=== PATIENT | female | born 1995 | race Caucasian/White ===

== ENCOUNTER 2025-03-25 16:05 | Inpatient (IN) | payer MEDICARE, MEDICAID, SELFPAY ==
[2025-03-25 16:06] VITALS: BP 105/73; PULSE 123; RESP 16; TEMP 36.8; O2SAT 96; BMI 32.3
--- NOTE | 2025-03-25 16:06 | ECG_ITS ---
[employer] Test Date: 2025-03-25 Pat Name: Ann So Department: Room: Gender: Female Cyber Forensic Specialist: : 1995 Requested By: Melida Mckeon Order Number: [id number] Florecita MD: Marquise Conway M.D. Measurements Intervals [place] Rate: 117 P: 31 NE: 128 QRS: 69 QRSD: 101 T: 1 QT: 321 QTc: 448 Interpretive Statements SINUS TACHYCARDIA NONSPECIFIC T-WAVE ABNORMALITY ABNORMAL RHYTHM ECG Compared to ECG 01/29/2016 03:30:56 Sinus rhythm no longer present Sinus arrhythmia no longer present T-wave abnormality still present Electronically Signed On 03-28-2025 14:15:00 CDT by Marquise Conway M.D. [email or web address]
--- NOTE | 2025-03-25 16:06 | ED.C_ITS ---
HPI - Psych 2 General: Chief Complaint: Psychiatric Symptoms Stated Complaint: SI/HI Time Seen by Provider: 03/25/25 16:06 History of Present Illness: This is a 29-year-old female with a history of psychiatric issues who presents the emergency room by ambulance with complaint of suicidal and homicidal ideations. She is never been here before. She says she just got out of snf recently and then she went to [facility] and was admitted to the hospital there but she says when she was discharged she did not go on medications that are helping her and now she feels suicidal and homicidal. She has superficial abrasions to both arms that were self-inflicted. Related Data Allergies Allergy/AdvReac Type Severity Reaction Status Date / Time No Known Allergies Allergy Verified 03/25/25 16:10 Review of Systems 2 Narrative: Constitutional symptoms: Negative except as documented in HPI. Skin symptoms: Negative except as documented in HPI. Eye symptoms: Negative except as documented in HPI. ENMT symptoms: Negative except as documented in HPI. Respiratory symptoms: Negative except as documented in HPI. Cardiovascular symptoms: Negative except as documented in HPI. Gastrointestinal symptoms: Negative except as documented in HPI. Genitourinary symptoms: Negative except as documented in HPI. Musculoskeletal symptoms: Negative except as documented in HPI. Neurologic symptoms: Negative except as documented in HPI. Psychiatric symptoms: Negative except as documented in HPI. Endocrine symptoms: Negative except as documented in HPI. Physical Exam 2 Narrative: EXAM NARRATIVE: General: Alert. no acute distress Skin: Warm, dry Head: Normocephalic, atraumatic. Neck: Supple, trachea midline. Eye: Extraocular movements are intact. Ears, nose, mouth and throat: Oral mucosa moist. Cardiovascular: Regular rate and rhythm, Normal peripheral perfusion. Respiratory: Lungs are clear to auscultation, respirations are non-labored, breath sounds are equal, Symmetrical chest wall expansion. Gastrointestinal: Soft, Nontender, Non distended Musculoskeletal: Normal ROM, no deformity. Neurological: Alert and oriented. No focal neurological deficit observed. Psychiatric: Cooperative, depressed, expresses suicidal ideation. Course 2 Vital Signs: Vital signs: Vital Signs Temperature 98.3 F 03/25/25 16:13 Pulse Rate 123 H 03/25/25 16:13 Respiratory Rate 16 03/25/25 16:13 Blood Pressure 105/73 03/25/25 16:13 Pulse Oximetry 96 03/25/25 16:13 Oxygen Delivery Me thod Room Air 03/25/25 16:13 MDM - Psych Medical Decision Making Differential diagnosis: Patient with reported depression and suicidal ideation. concerns for infection, alcohol intoxication, cardiac issues or other medical problems prior to psychiatric admission. Workup: labwork, ekg ordered to evaluate the pathologies and to clear the patient medically prior to psychiatric admission Lab Review: Laboratory results were reviewed and interpreted by myself the emergency room physician. - Medically cleared. - Blood alcohol level is negative, -Tylenol and salicylate levels are negative. - Drug screen is benzodiazepine - No signs of infection, urinalysis clear and white count is not elevated - No anemia. - BUN and creatinine are within normal limits. Consultation: I spoke with Dr. Hill who is on-call for psychiatry who agrees to admission. Assessment and plan: Suicidal ideation Self-mutilating behavior -Admission to neuropsychiatric unit for continued evaluation and treatment. - All lab work was reviewed and interpreted personally by myself, the ER physician - Evaluation and treatment of this problem were appropriate in the emergency setting Lab Data 03/25/25 17:17 03/25/25 17:17 Laboratory Results WBC 7.15 10^3/uL (3.29-11.43) 03/25/25 17:17 RBC 4.49 10^6/uL (3.85-5.65) 03/25/25 17:17 Hgb 12.60 g/dL (11.27-16.99) 03/25/25 17:17 Hct 38.7 % (36-47) 03/25/25 17:17 MCV 86.2 fl (85-98) 03/25/25 17:17 MCH 28.1 pg (27-33) 03/25/25 17:17 MCHC 32.6 g/dL (30-55) 03/25/25 17:17 RDW 14.6 % (12.1-15.1) 03/25/25 17:17 Plt Count 231 10^3/cmm (157-399) 03/25/25 17:17 MPV 10.0 fL (7.4-10.4) 03/25/25 17:17 Neut % (Auto) 61.8 % 03/25/25 17:17 Lymph % (Auto) 29.2 % 03/25/25 17:17 [place] % (Auto) 7.4 % 03/25/25 17:17 Eos % (Auto) 0.8 % 03/25/25 17:17 Baso % (Auto) 0.4 % 03/25/25 17:17 Neut # (Auto) 4.41 10^3/uL (1.8-7.7) 03/25/25 17:17 Lymph # (Auto) 2.1 10^3/uL (0.8-4.8) 03/25/25 17:17 [place] # (Auto) 0.5 10^3/uL (0.2-0.9) 03/25/25 17:17 Eos # (Auto) 0.1 10^3/uL (0.0-0.8) 03/25/25 17:17 Baso # (Auto) 0.0 10^3/uL (0.0-0.1) 03/25/25 17:17 Nucleated RBC % (auto) 0 % 03/25/25 17:17 Nucleated RBCs # 0.0 /100WBC 03/25/25 17:17 Sodium 140 mmol/L (136-145) 03/25/25 17:17 Potassium 3.6 mmol/L (3.5-5.1) 03/25/25 17:17 Chloride 107 mmol/L (98-107) 03/25/25 17:17 Anion Gap 18.6 (5-19) 03/25/25 17:17 BUN 18 mg/dL (6-20) 03/25/25 17:17 Creatinine 0.8 mg/dL (0.5-0.9) 03/25/25 17:17 Glucose 93 mg/dL (65-115) 03/25/25 17:17 Calculated Osmolality 292 mOsm/kg (285-295) 03/25/25 17:17 Calcium 8.7 mg/dL (8.5-10.5) 03/25/25 17:17 Total Bilirubin 0.2 mg/dL (0.15-1.2) 03/25/25 17:17 AST 10 U/L (0-32) 03/25/25 17:17 ALT 11 U/L (0-33) 03/25/25 17:17 Alkaline Phosphatase 85 U/L (35-105) 03/25/25 17:17 Total Protein 6.6 g/dL (6.6-8.7) 03/25/25 17:17 Albumin 4.1 g/dL (3.5-5.2) 03/25/25 17:17 Globulin 2.5 g/dL (1.3-4.6) 03/25/25 17:17 TSH 0.46 uIU/mL (0.27-4.20) 03/25/25 17:17 HCG, Qual Negative (Negative) 03/25/25 16:25 Urine Color Yellow (Yellow) 03/25/25 16:25 Urine Appearance Clear (CLEAR) 03/25/25 16: Urine pH 5.5 (5-7) 03/25/25 16: Ur Specific [place] 1.022 (1.005-1.030) 03/25/25 16: Urine Protein Negative (Negative) 03/25/25 16:25 Urine Glucose (UA) Negative (Normal) 03/25/25 16: Urine Ketones Trace (Negative) 03/25/25 16: Urine Blood Negative (Negative) 03/25/25 16:25 Urine Nitrate Negative (Negative) 03/25/25 16:25 Urine Bilirubin Negative (Negative) 03/25/25 16: Urine Urobilinogen 1.0 mg/dL (Negative) 03/25/25 16:25 Ur Leukocyte Esterase Negative (Negative) 03/25/25 16:25 Urine RBC 0-2 /hpf (0-2) 03/25/25 16:25 Urine WBC 6-10 /hpf (0-5) 03/25/25 16:25 Ur Squamous Epith Cells 11-20 /hpf (0-5) H 03/25/25 16:25 Amorphous Sediment Not Reportable 03/25/25 16:25 Urine Bacteria 2+ /hpf (NONE) H 03/25/25 16:25 Hyaline Casts 1.21 /lpf 03/25/25 16:25 Urine Opiates Screen Negative ng/mL (Negative) 03/25/25 16:25 Ur Barbiturates Screen Negative ng/mL (Negative) 03/25/25 16:25 Ur Phencyclidine Scrn Negative ng/mL (Negative) 03/25/25 16:25 Ur Amphetamines Screen Negative ng/mL (Negative) 03/25/25 16:25 U Benzodiazepines Scrn Positive ng/mL (Negative) H 03/25/25 16:25 Urine Cocaine Screen Negative ng/mL (Negative) 03/25/25 16:25 U Marijuana (THC) Screen Negative ng/mL (Negative) 03/25/25 16:25 No radiology studies performed this visit Discharge Plan Discharge Patient Disposition: Admitted As Inpatient Clinical Impression: Depression, Suicidal ideation, Self mutilating behavior Condition: Stable Coding Level of Care Code ED Angio Technologist for Carmita Corbett
[2025-03-25 16:13] VITALS: BP 105/73; PULSE 123; RESP 16; TEMP 36.8; O2SAT 96
[2025-03-25 16:34] LABS: Glucose Urine UA Negative (Normal); Nitrate Urine Negative (Negative); Specific Gravity, Urine 1.022 (1.005-1.030)
[2025-03-25 16:36] LABS: Add Urine Microscopic? YES; HCG Qualitative Urine. Negative (Negative)
[2025-03-25 16:41] LABS: PCP Screen Urine Negative (Negative)
[2025-03-25 17:36] LABS: Hematocrit 38.7 % (36-47); Hemoglobin 12.60 g/dL (11.27-16.99); Mean Corpuscular HGB Conc 32.6 g/dL (30-55); Mean Corpuscular Hemoglobin 28.1 pg (27-33); Mean Corpuscular Volume 86.2 fl (85-98); Nucleated Red Blood Cells % 0 %; Platelet Count 231 10^3/cmm (157-399); Red Blood Count 4.49 10^6/uL (3.85-5.65); White Blood Count 7.15 10^3/uL (3.29-11.43)
[2025-03-25 18:10] LABS: Alanine Aminotransferase 11 U/L (0-33); Albumin Level 4.1 g/dL (3.5-5.2); Alkaline Phosphatase 85 U/L (35-105); Anion Gap 18.6 (5-19); Aspartate Amino Transferase 10 U/L (0-32); Blood Urea Nitrogen 18 mg/dL (6-20); Calcium 8.7 mg/dL (8.5-10.5); Carbon Dioxide 18 mmol/L (22-29); Chloride 107 mmol/L (98-107); Creatinine Clr Calc Pharmacy 116.6594; Globulin 2.5 g/dL (1.3-4.6); Glucose 93 mg/dL (65-115); Osmolality Calculated 292 mOsm/kg (285-295); Potassium 3.6 mmol/L (3.5-5.1); Sodium 140 mmol/L (136-145); Thyroid Stimulating Hormone 0.46 uIU/mL (0.27-4.20); Total Protein 6.6 g/dL (6.6-8.7)
[2025-03-25 18:11] LABS: Acetaminophen < 5.0 ug/mL (10-30); Alcohol Level < 10 mg/dL (0-10); Salicylate < 0.3 mg/dL (3-10)
--- NOTE | 2025-03-25 18:22 | PC.NURSE ---
Involuntary 96 hour hold rights read and reviewed with patient. Osmany from security present during reading of rights. Patient verbalized understandings and copy of rights given to patient. Patient is requesting something for anxiety.
[2025-03-25] MEDS: LORazepam 1 MG/0.5 ML injection 2 MG IM (20:01)
[2025-03-25 20:03] VITALS: BP 120/80; PULSE 115; RESP 18; O2SAT 98
--- NOTE | 2025-03-26 01:27 | PC.NURSE ---
Pt attempted to eat her wristband because she is not getting her way. Pt demanding medications for pain and is acting out.
[2025-03-26 08:54] VITALS: BP 130/78; PULSE 82; O2SAT 98
[2025-03-26 09:14] VITALS: BP 130/70; PULSE 82; RESP 18; TEMP 36.8; O2SAT 98
--- NOTE | 2025-03-26 12:17 | PC.NURSE ---
Pt assessment went well with no behavioral issues.
--- NOTE | 2025-03-26 12:59 | PC.NURSE ---
Pt has pica and wanted to eat the batteries out of the remote. Needs to be watched especially with small objects. She also said she tried to kill herself by swallowing a spoon.
[2025-03-26 14:00] VITALS: BP 118/74; PULSE 109; RESP 17; TEMP 36.7; O2SAT 97
--- NOTE | 2025-03-26 14:57 | PC.NURSE ---
Pt has been found putting her identity bracelet and chip bag in her mouth. She has spit it all out and denied having swallowing any. I first gave her Zyprexa to help with her anxiety after she did her ID band and after eating her chip bag, Dr. Hill has approved for her to have an oral B52, See MAR.
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
[2025-03-26] MEDS: LORazepam 1 MG/0.5 ML injection 2 MG IM (18:31)
[2025-03-26] MEDS: haloperidol inj 5 mg/mL INJ 1 mL IM (18:31)
[2025-03-26] MEDS: diphenhydrAMINE 50 mg/mL SDV 1mL IM (18:31)
--- NOTE | 2025-03-26 20:05 | PC.NURSE ---
Pt was found in her room on her bed wrapped in a blanket. She had ate a portion of her styerfoam cup. We let pt know that she was going to have to go to seclusion because she was cont to harm herself by eating non food items. She refused. We called security to assist us. Her blanket was removed from her and she was manually made to get off her bed and move to seclusion. Pt began to fight staff. A code 10 was called. At 1735 pt was placed in seclusion. Within seconds she began to scratch and wounds she had already created with self harm. At 1737 we moved her to restraints. She began to increasingly fight staff. Dr. Hill approved a B52 injection. At 1742 she received an injection see nov. She calmed down with time. At 1815 her Rt leg was released. 1826 Rt arm, 183 lt leg. 1840 fully removed from seclusion. We had conversations about not cont the behaviors. She agreed and made her way to the nurses station where she received a snack and beverage a long with her remaining scheduled meds.
--- NOTE | 2025-03-26 22:18 | PC.NURSE ---
pt refused vs, charge nurse notified, resp 17
[2025-03-27 06:00] VITALS: BP 117/81; PULSE 100; RESP 21; TEMP 36.8; O2SAT 95
--- NOTE | 2025-03-27 10:44 | PC.NURSE ---
Shift Assessment Pt states that she slept good last night. She denied anxiety and rates her depression a 7/10. She endorses both SI & HI, but states she has no plan. When asked about hallucinations she states that she has both auditory and visual. I asked her to elaborate on that and she states that the auditory hallucinations are voices telling her to hurt herself or others. She states that the visual hallucinations are a lady in a white dress, demons, of just black spots, she states that it's always various things. When I asked her if she was having any pain she states that her bladder is hurting and that she is supposed to be on meds to help her urinate. She also states that she has not had a bm in over a week, since she was in retirement. I informed her that I would speak with doc and see if we could get her something to help. She is claiming that she is not fully lactose intolerant. It's only milk and foods like cheese and yogurt don't bother her. She is wanting this to be edited so she can have at least yogurt.
--- NOTE | 2025-03-27 11:15 | PC.NURSE ---
v/o from Dr. Hill to order MOM for pt for constipation. See MAR.
[2025-03-27 14:00] VITALS: BP 130/84; PULSE 113; RESP 18; TEMP 36.6; O2SAT 98
--- NOTE | 2025-03-27 14:11 | W.PM.NPUPNS ---
Subjective NPU Subjective: Patient presented today reporting that things have been tough recently. She just got out of residential a few days ago and they took her to [place] for presumptive admission not giving her any of the medications she took in residential. Given that she was on a 96-hour hold she was not admitted at that facility in [place] and they were looking for discharge options and so she had some experience in this area and so they [facility] the [facility]. However she reported that when she got to [facility] still without medications from the hospitalization she ended up struggling. She reports that she is in a tough situation because she has been in residential or psychiatric facilities more or less without stability for much of the past couple of years. She endorsed looking for possibly a fdc or some kind of more controlled environment. She reports having been on Haldol, Cogentin, BuSpar and Ativan but having no real evidence to this. We discussed getting some of that information from the [facility]. Mental Status Exam MSE Comments: This is an obese white female in hospital scrubs with limited grooming but adequate eye contact. No abnormal movements except for psychomotor retardation. Cooperative with exam in mild to moderate distress. Speech was slightly decreased rate and volume and childlike with speech impediment. Mood described as depressed, affect congruent and subdued. Thought process linear. Thought content: Patient endorsed suicidal ideation leading to hospitalization, but denied homicidal ideation, there were no delusions reported or noted, she she denied current auditory or visual hallucinations. Attention and concentration appeared intact and memory was somewhat reliable but none were formally tested. She is alert and oriented x 3. Insight and judgment appeared impaired and impulse control is impaired. Intellectual ability was impaired. Vitals/I&O/Wt Last Vital Signs Temp 98.3 F 03/27/25 06:00 Pulse 100 03/27/25 06:00 Resp 21 H 03/27/25 06:00 BP 117/81 03/27/25 06:00 Pulse Ox 95 03/27/25 06:00 O2 Del Method Room Air 03/27/25 06:00 Weight last 48 hrs Weight 90.718 kg Data NPU 03/25/25 17:17 03/25/25 17:17 A&P Assessment and plan 1. Self mutilating behavior: 2. Suicidal ideation: 3. Borderline personality disorder: 4. Pica: 5. PTSD (post-traumatic stress disorder): 6. Depression: 7. Borderline intellectual functioning: Plan: This is a 18-year-old white female with a long history of mental health issues including diagnoses of PTSD, borderline personality disorder and bipolar disorder with reports of frequent hospitalizations recently but none here since 2016. She presents with likely intellectual disability, poor impulse control, reports that she has uncontrollable pica and self-injurious behavior. 1. Will attempt to get some previous records from recent hospitalizations to understand where we got to these multiple medications and make changes as indicated. 2. Encourage individual, group and milieu therapy. 3. Continue every 15 minute checks for safety. 4. Obtain collateral information. 5. Monitor against the backdrop of the 96-hour hold. PDMP PDMP Reviewed: Not Reviewed Involuntary Hold Information Hold Status: Legal Status: 96 Hour Hold Date/Time Hold Expires: 03/31/25 Attestations NPU Medical Necessity Statement*: Inpatient hospitalization is medically necessary and the clinically appropriate intervention at this time. We will monitor/initiate medications and make changes as indicated. Likely length of stay 4 to 6 days. Coding Level of Care Code Acute Code for g Fwd Diagnoses Self mutilating behavior Z72.89 Suicidal ideation R45.851 Borderline personality disorder F60.3 Pica F50.89 PTSD (post-traumatic stress disorder) F43.10 Depression F32.A Borderline intellectual functioning R41.83
[2025-03-27 20:23] VITALS: BP 124/80; PULSE 100; RESP 18; TEMP 36.4; O2SAT 96
[2025-03-28 06:00] VITALS: BP 121/76; PULSE 99; RESP 16; TEMP 36.9; O2SAT 99
--- NOTE | 2025-03-28 07:18 | P.NPUPN_ITS ---
Subjective NPU 2 Subjective: Patient presented today reporting that things are going okay. She was very psychosomatic today as usual with increased areas of concern. We discussed the risks, benefits and alternatives of initiating a beta-marya either metoprolol or propranolol to assist with her anxiety and elevated heart rate. We continued to discuss her desire for residential treatment. She denied any side effects to her medications. Mental Status Exam 2 MSE Comments: This is an obese white female in hospital scrubs with limited grooming but adequate eye contact. No abnormal movements except for psychomotor retardation. Cooperative with exam in mild to moderate distress. Speech was slightly decreased rate and volume and childlike with speech impediment. Mood described as depressed, affect congruent and subdued. Thought process linear. Thought content: Patient endorsed suicidal ideation leading to hospitalization, but denied homicidal ideation, there were no delusions reported or noted, she she denied current auditory or visual hallucinations. Attention and concentration appeared intact and memory was somewhat reliable but none were formally tested. She is alert and oriented x 3. Insight and judgment appeared impaired and impulse control is impaired. Intellectual ability was impaired. Vitals/I&O/Wt Last Vital Signs Temp 98.4 F 03/28/25 06:00 Pulse 99 03/28/25 06:00 Resp 16 03/28/25 06:00 BP 121/76 03/28/25 06:00 Pulse Ox 99 03/28/25 06:00 O2 Del Method Room Air 03/28/25 06:00 Weight last 48 hrs Weight 94.529 kg Weight 94.529 kg Data NPU 03/25/25 17:17 03/25/25 17:17 A&P Assessment and plan 1. Self mutilating behavior: 2. Suicidal ideation: 3. Borderline personality disorder: 4. Pica: 5. PTSD (post-traumatic stress disorder): 6. Depression: 7. Borderline intellectual functioning: Plan: This is a 18-year-old white female with a long history of mental health issues including diagnoses of PTSD, borderline personality disorder and bipolar disorder with reports of frequent hospitalizations recently but none here since 2016. She presents with likely intellectual disability, poor impulse control, reports that she has uncontrollable pica and self-injurious behavior. 1. Will attempt to get some previous records from recent hospitalizations to understand where we got to these multiple medications and make changes as indicated. Restarted BuSpar and increased to 20 mg p.o. 3 times daily 2. Encourage individual, group and milieu therapy. 3. Continue every 15 minute checks for safety. 4. Obtain collateral information. 5. Monitor against the backdrop of the 96-hour hold. PDMP PDMP Reviewed: Not Reviewed Involuntary Hold Information 2 Hold Status: Legal Status: 96 Hour Hold Date/Time Hold Expires: 03/31/25 Attestations NPU 2 Medical Necessity Statement*: Inpatient hospitalization is medically necessary and the clinically appropriate intervention at this time. We will monitor/initiate medications and make changes as indicated. Likely length of stay 4 to 6 days. Coding Level of Care Code Acute Code for Chg Fwd Diagnoses Self mutilating behavior Z72.89 Suicidal ideation R45.851 Borderline personality disorder F60.3 Pica F50.89 PTSD (post-traumatic stress disorder) F43.10 Depression F32.A Borderline intellectual functioning R41.83
--- NOTE | 2025-03-28 12:10 | PC.NURSE ---
Dr. Hill gave verbal order to increase Buspirone to 20mg PO TID
--- NOTE | 2025-03-28 12:37 | PC.NURSE ---
Signee called and left 3 messages on different voice mails requested medical records for pt. Signee left phone number to the NPU as a call back number.
--- NOTE | 2025-03-28 12:49 | PC.NURSE ---
message with fax number left at [facility] with [facility] fax number and NPU phone number.
[2025-03-28 14:00] VITALS: BP 101/73; PULSE 98; RESP 20; TEMP 36.8; O2SAT 98
--- NOTE | 2025-03-28 14:44 | PC.NURSE ---
A fax for release of information was faxed to [facility] at
[2025-03-28 19:37] VITALS: BP 123/78; PULSE 93; RESP 16; TEMP 36.7; O2SAT 98
[2025-03-28] MEDS: neomycin-poly-bacitracin oint 28 gm 1 APPLIC TOPICAL (19:57)
[2025-03-29 05:47] VITALS: BP 125/81; PULSE 91; RESP 18; TEMP 36.6; O2SAT 98
[2025-03-29 06:00] VITALS: BP 110/71; PULSE 100; RESP 18; TEMP 36.7; O2SAT 98
[2025-03-29 09:44] LABS: Estmated Average Glucose 97; Hemoglobin A1C 5.0 % (4.0-6.0)
[2025-03-29 14:00] VITALS: BP 107/69; PULSE 97; RESP 18; TEMP 36.7; O2SAT 94
--- NOTE | 2025-03-29 18:27 | PC.NURSE ---
Dr. Hill gave verbal order to start Protonix 40mg PO QD.
[2025-03-29 19:46] VITALS: BP 125/79; PULSE 97; RESP 19; TEMP 37; O2SAT 98
[2025-03-29] MEDS: neomycin-poly-bacitracin oint 28 gm 1 APPLIC TOPICAL (20:28)
[2025-03-30 06:00] VITALS: BP 117/71; PULSE 103; RESP 18; TEMP 36.9; O2SAT 97
--- NOTE | 2025-03-30 07:55 | PC.NURSE ---
[facility] and gave fax number for release of information to be faxed. Signee faxed the release of information requested to the [facility] this am.
--- NOTE | 2025-03-30 08:29 | P.NPUPN_ITS ---
Subjective NPU 2 Subjective: Patient presented today reporting that she is doing okay except for she spent much of her time during the day with various somatic complaints per staff reports of direct observation. She continued to ask about starting medication for every single system that she has a father about. We discussed that we checked. Hemoglobin A1c it was 5.0. She tried to get up to start medication for diabetes prior to us checking her A1c. We discussed that she needs to take things 1 thing at a time and she continues to seem anxious and want to check off everything on her worry list. She denies any side effects of the medication. Mental Status Exam 2 MSE Comments: This is an obese white female in hospital scrubs with limited grooming but adequate eye contact. No abnormal movements except for psychomotor retardation. Cooperative with exam in mild to moderate distress. Speech was slightly decreased rate and volume and childlike with speech impediment. Mood described as depressed, affect congruent and subdued. Thought process linear. Thought content: Patient endorsed suicidal ideation leading to hospitalization, but denied homicidal ideation, there were no delusions reported or noted, she she denied current auditory or visual hallucinations. Attention and concentration appeared intact and memory was somewhat reliable but none were formally tested. She is alert and oriented x 3. Insight and judgment appeared impaired and impulse control is impaired. Intellectual ability was impaired. Vitals/I&O/Wt Last Vital Signs Temp 98.5 F 03/30/25 06:00 Pulse 103 H 03/30/25 06:00 Resp 18 03/30/25 06:00 BP 117/71 03/30/25 06:00 Pulse Ox 97 03/30/25 06:00 O2 Del Method Room Air 03/30/25 06:00 Weight last 48 hrs Weight 94.529 kg Weight 94.529 kg Data NPU 03/25/25 17:17 03/25/25 17:17 A&P Assessment and plan 1. Self mutilating behavior: 2. Suicidal ideation: 3. Borderline personality disorder: 4. Pica: 5. PTSD (post-traumatic stress disorder): 6. Depression: 7. Borderline intellectual functioning: Plan: This is a 18-year-old white female with a long history of mental health issues including diagnoses of PTSD, borderline personality disorder and bipolar disorder with reports of frequent hospitalizations recently but none here since 2016. She presents with likely intellectual disability, poor impulse control, reports that she has uncontrollable pica and self-injurious behavior. 1. Will attempt to get some previous records from recent hospitalizations to understand where we got to these multiple medications and make changes as indicated. Restarted BuSpar and increased to 20 mg p.o. 3 times daily. Started propranolol 20 mg p.o. 3 times daily as needed and trying to get records from [facility]. 2. Encourage individual, group and milieu therapy. 3. Continue every 15 minute checks for safety. 4. Obtain collateral information. 5. Monitor against the backdrop of the 96-hour hold. PDMP PDMP Reviewed: Not Reviewed Involuntary Hold Information 2 Hold Status: Legal Status: 96 Hour Hold Date/Time Hold Expires: 03/31/25 Attestations NPU 2 Medical Necessity Statement*: Inpatient hospitalization is medically necessary and the clinically appropriate intervention at this time. We will monitor/initiate medications and make changes as indicated. Likely length of stay 4 to 6 days. Coding Level of Care Code Acute Code for Chg Fwd Diagnoses Self mutilating behavior Z72.89 Suicidal ideation R45.851 Borderline personality disorder F60.3 Pica F50.89 PTSD (post-traumatic stress disorder) F43.10 Depression F32.A Borderline intellectual functioning R41.83
--- NOTE | 2025-03-30 12:52 | P.NPUPN_ITS ---
Subjective NPU 2 Subjective: Patient presented today reporting that she was doing fine. She said that her anxiety however was overwhelming. She spent the day like the past days being very somatically preoccupied essentially naming every system in her body and what she needed done with it from her skin, to her bladder, to her heart excetra. We continue to tell her that we need to take it a day at a time and not just have new medications and interventions every day. She says she understood but she ended up having a meltdown and needed restraint. She asked for whether we would restart Ativan for her and when that was not done she attempted to get forced medication that had Ativan with it. Discussed with staff not utilizing that as a vehicle she could try to get the Ativan without having it prescribed. She had denied any side effects to her medication. Mental Status Exam 2 MSE Comments: This is an obese white female in hospital scrubs with limited grooming but adequate eye contact. No abnormal movements except for psychomotor retardation. Cooperative with exam in mild to moderate distress. Speech was slightly decreased rate and volume and childlike with speech impediment. Mood described as depressed, affect congruent and subdued. Thought process linear. Thought content: Patient endorsed suicidal ideation leading to hospitalization, but denied homicidal ideation, there were no delusions reported or noted, she she denied current auditory or visual hallucinations. Attention and concentration appeared intact and memory was somewhat reliable but none were formally tested. She is alert and oriented x 3. Insight and judgment appeared impaired and impulse control is impaired. Intellectual ability was impaired. Vitals/I&O/Wt Last Vital Signs Temp 98.5 F 03/30/25 06:00 Pulse 103 H 03/30/25 06:00 Resp 18 03/30/25 06:00 BP 117/71 03/30/25 06:00 Pulse Ox 97 03/30/25 06:00 O2 Del Method Room Air 03/30/25 06:00 Weight last 48 hrs Weight 94.529 kg Weight 94.529 kg Data NPU 03/25/25 17:17 03/25/25 17:17 A&P Assessment and plan 1. Self mutilating behavior: 2. Suicidal ideation: 3. Borderline personality disorder: 4. Pica: 5. PTSD (post-traumatic stress disorder): 6. Depression: 7. Borderline intellectual functioning: Plan: This is a 18-year-old white female with a long history of mental health issues including diagnoses of PTSD, borderline personality disorder and bipolar disorder with reports of frequent hospitalizations recently but none here since 2016. She presents with likely intellectual disability, poor impulse control, reports that she has uncontrollable pica and self-injurious behavior. 1. Will attempt to get some previous records from recent hospitalizations to understand where we got to these multiple medications and make changes as indicated. Restarted BuSpar and increased to 20 mg p.o. 3 times daily. Started propranolol 20 mg p.o. 3 times daily as needed and trying to get records from [facility]. 2. Encourage individual, group and milieu therapy. 3. Continue every 15 minute checks for safety. 4. Obtain collateral information. 5. Monitor against the backdrop of the 96-hour hold. PDMP PDMP Reviewed: Not Reviewed Involuntary Hold Information 2 Hold Status: Legal Status: 96 Hour Hold Date/Time Hold Expires: 03/31/25 Attestations NPU 2 Medical Necessity Statement*: Inpatient hospitalization is medically necessary and the clinically appropriate intervention at this time. We will monitor/initiate medications and make changes as indicated. Likely length of stay 4 to 6 days. Coding Level of Care Code Acute Code for Chg Fwd Diagnoses Self mutilating behavior Z72.89 Suicidal ideation R45.851 Borderline personality disorder F60.3 Pica F50.89 PTSD (post-traumatic stress disorder) F43.10 Depression F32.A Borderline intellectual functioning R41.83
[2025-03-30] MEDS: LORazepam 1 MG/0.5 ML injection 2 MG IM (13:15)
[2025-03-30] MEDS: haloperidol inj 5 mg/mL INJ 1 mL IM ×2 (13:15→19:21)
[2025-03-30] MEDS: diphenhydrAMINE 50 mg/mL SDV 1mL IM ×2 (13:15→19:20)
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
[2025-03-30 14:00] VITALS: BP 120/81; PULSE 105; RESP 18; TEMP 37.1; O2SAT 95
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
[2025-03-30 20:37] VITALS: BP 109/79; PULSE 106; RESP 19; TEMP 36.4; O2SAT 93
--- NOTE | 2025-03-30 20:37 | PC.NURSE ---
DR JASON NOTIFIED THAT PT HAD BLADDER SCAN ORDERED THAT WAS NOT DONE. REQUEST GRANTED TO PUT A PRN ORDER FOR BLADDER SCAN & STRAIGHT CATH NEEDED.
[2025-03-30] MEDS: paliperidone ER 6 mg Tablet PO (21:06)
[2025-03-31] VITALS (11 sets, daily range): BP systolic 106–126; BP diastolic 55–76; PULSE 84–108; RESP 16–18; TEMP 36.6–37.2; O2SAT 95–97
[2025-03-31] MEDS: paliperidone ER 6 mg Tablet PO (08:21)
--- NOTE | 2025-03-31 12:13 | PC.NURSE ---
MD kahn'd this.
[2025-03-31] MEDS: neomycin-poly-bacitracin oint 28 gm 1 APPLIC TOPICAL (15:17)
--- NOTE | 2025-03-31 17:41 | W.PM.NPUPNS ---
Subjective NPU Subjective: Patient presented today continuing to have moments of emotional dysregulation per staff reports and direct observation. She continued to have questions and desires to get something started in relation to any kind of thoughts she had. She reports that her scalp is itchy so she wants medical shampoo, she reports her feet are tingly and so she wants medication for her neuropathy which she reports she had been on Neurontin in the past. And this list went on and on. We discussed the risks, benefits and alternatives of restarting some Neurontin and she understood and agreed to proceed as is documented in this note. We discussed that by doing that we might be able to help the anxiety which seems to be the driving force for her challenges. She denied any side effects to her medications. Mental Status Exam MSE Comments: This is an obese white female in hospital scrubs with limited grooming but adequate eye contact. No abnormal movements except for psychomotor retardation. Cooperative with exam in mild to moderate distress. Speech was slightly decreased rate and volume and childlike with speech impediment. Mood described as depressed, affect congruent and subdued. Thought process linear. Thought content: Patient endorsed suicidal ideation leading to hospitalization, but denied homicidal ideation, there were no delusions reported or noted, she she denied current auditory or visual hallucinations. Attention and concentration appeared intact and memory was somewhat reliable but none were formally tested. She is alert and oriented x 3. Insight and judgment appeared impaired and impulse control is impaired. Intellectual ability was impaired. Vitals/I&O/Wt Last Vital Signs Temp 99 F 03/31/25 14:00 Pulse 108 H 03/31/25 14:00 Resp 17 03/31/25 16:12 BP 115/74 03/31/25 14:00 Pulse Ox 97 03/31/25 14:00 O2 Del Method Room Air 03/31/25 06:00 Data NPU 03/25/25 17:17 03/25/25 17:17 A&P Assessment and plan 1. Self mutilating behavior: 2. Suicidal ideation: 3. Borderline personality disorder: 4. Pica: 5. PTSD (post-traumatic stress disorder): 6. Depression: 7. Borderline intellectual functioning: Plan: This is a 18-year-old white female with a long history of mental health issues including diagnoses of PTSD, borderline personality disorder and bipolar disorder with reports of frequent hospitalizations recently but none here since 2015. She presents with likely intellectual disability, poor impulse control, reports that she has uncontrollable pica and self-injurious behavior. 1. Will attempt to get some previous records from recent hospitalizations to understand where we got to these multiple medications and make changes as indicated. Restarted BuSpar and increased to 20 mg p.o. 3 times daily. Started propranolol 20 mg p.o. 3 times daily as needed and trying to get records from [facility]. Added Neurontin 100 mg p.o. 3 times daily. 2. Encourage individual, group and milieu therapy. 3. Continue every 15 minute checks for safety. 4. Obtain collateral information. 5. Monitor against the backdrop of the 96-hour hold. PDMP PDMP Reviewed: Not Reviewed Involuntary Hold Information Hold Status: Legal Status: 96 Hour Hold Date/Time Hold Expires: 03/31/25 Attestations NPU Medical Necessity Statement*: Inpatient hospitalization is medically necessary and the clinically appropriate intervention at this time. We will monitor/initiate medications and make changes as indicated. Likely length of stay 4 to 6 days. Coding Level of Care Code Acute Code for Chg Fwd Diagnoses Self mutilating behavior Z72.89 Suicidal ideation R45.851 Borderline personality disorder F60.3 Pica F50.89 PTSD (post-traumatic stress disorder) F43.10 Depression F32.A Borderline intellectual functioning R41.83
[2025-03-31] MEDS: haloperidol inj 5 mg/mL INJ 1 mL IM (20:42)
[2025-03-31] MEDS: diphenhydrAMINE 50 mg/mL SDV 1mL IM (20:42)
--- NOTE | 2025-03-31 23:10 | PC.NURSE ---
At approximately 21:15 a code 10 was called R/T patient attempting to self harm by scratching at her fore arms and attempting to bang her head on the wall. She also became aggressive with staff; kicking, screaming profanities, striking at and attempts to spit on staff. This was shortly after she was given Zyprexa 5mg PO, Trazodone 100mg PO, Inderal 10 mg PO and vistaril 50mg PO. Dr[address] Hill was notified and ordered 100mg Seroquil PO. Patient continued to escalate. Order for 50mg benadryl IM and 5mg Haldol IM along with order for patient to be placed in the restraint bed if we were unable to deescalate her behavior. At 21:18 patient was taken to the restraint room in the restraint bed with the help of NPU staff, Security, warehouse distribution specialist, ER staff and additional responding staff. Q 15 minute circulation and extremity capillary checks were performed as well as Q 15 minute vital signs. Patient agreed to stop her self harming, aggressive, abusive behaviors. The patient was released from restraints at 23:05; a total of 1 hour and 53 minutes. She returned to her room / bed 1:1 sitter at bedside without further incident.
--- NOTE | 2025-04-01 05:46 | PC.NURSE ---
vitals not collected, resp. 16, nurse notified
[2025-04-01] MEDS: paliperidone ER 6 mg Tablet PO (08:00)
--- NOTE | 2025-04-01 13:35 | PC.NURSE ---
PRN MED PT GIVEN 5MG ZYDIS FOE ANXIETY, WILL CONTINUE TO MONITOR.
[2025-04-01 14:00] VITALS: BP 129/82; PULSE 88; RESP 18; TEMP 36.7; O2SAT 94
--- NOTE | 2025-04-01 14:51 | P.NPUPN_ITS ---
Subjective NPU 2 Subjective: Patient presented today reporting that she was doing okay and wanting to get off one-to-one. Will continue to discussed with the damage she is doing to her chances for placement when she is unable to manage herself responsibly. He continued to introduce of her [place] complaints and hopes and wishes. We discussed continuing to take things slow and not just jump to every when that comes to her mind. She denied any side effects to her medication. Mental Status Exam 2 MSE Comments: This is an obese white female in hospital scrubs with limited grooming but adequate eye contact. No abnormal movements except for psychomotor retardation. Cooperative with exam in mild to moderate distress. Speech was slightly decreased rate and volume and childlike with speech impediment. Mood described as depressed, affect congruent and subdued. Thought process linear. Thought content: Patient endorsed suicidal ideation leading to hospitalization, but denied homicidal ideation, there were no delusions reported or noted, she she denied current auditory or visual hallucinations. Attention and concentration appeared intact and memory was somewhat reliable but none were formally tested. She is alert and oriented x 3. Insight and judgment appeared impaired and impulse control is impaired. Intellectual ability was impaired. Vitals/I&O/Wt Last Vital Signs Temp 98.1 F 03/31/25 20:20 Pulse 87 03/31/25 23:05 Resp 18 03/31/25 20:20 BP 106/71 03/31/25 23:05 Pulse Ox 95 03/31/25 20:20 O2 Del Method Room Air 03/31/25 20:20 Data NPU 03/25/25 17:17 03/25/25 17:17 A&P Assessment and plan 1. Self mutilating behavior: 2. Suicidal ideation: 3. Borderline personality disorder: 4. Pica: 5. PTSD (post-traumatic stress disorder): 6. Depression: 7. Borderline intellectual functioning: Plan: This is a 18-year-old white female with a long history of mental health issues including diagnoses of PTSD, borderline personality disorder and bipolar disorder with reports of frequent hospitalizations recently but none here since 2016. She presents with likely intellectual disability, poor impulse control, reports that she has uncontrollable pica and self-injurious behavior. 1. Will attempt to get some previous records from recent hospitalizations to understand where we got to these multiple medications and make changes as indicated. Restarted BuSpar and increased to 20 mg p.o. 3 times daily. Started propranolol 20 mg p.o. 3 times daily as needed and trying to get records from intermediate. Added Neurontin 100 mg p.o. 3 times daily. 2. Encourage individual, group and milieu therapy. 3. Continue every 15 minute checks for safety. Patient has been on one-to-one during the day after significant difficulties overnight last night. But was taken off. 4. Obtain collateral information. 5. Monitor against the backdrop of the 96-hour hold. PDMP PDMP Reviewed: Not Reviewed Involuntary Hold Information 2 Hold Status: Legal Status: 96 Hour Hold Date/Time Hold Expires: 03/31/25 Attestations NPU 2 Medical Necessity Statement*: Inpatient hospitalization is medically necessary and the clinically appropriate intervention at this time. We will monitor/initiate medications and make changes as indicated. Likely length of stay 4 to 6 days. Coding Level of Care Code Acute Code for Chg Fwd Diagnoses Self mutilating behavior Z72.89 Suicidal ideation R45.851 Borderline personality disorder F60.3 Pica F50.89 PTSD (post-traumatic stress disorder) F43.10 Depression F32.A Borderline intellectual functioning R41.83
[2025-04-01 20:53] VITALS: BP 148/96; PULSE 99; RESP 18; TEMP 36.6; O2SAT 96
[2025-04-01] MEDS: ketoconazole Shampoo 120 mL Btl 1 APPLIC TOPICAL (21:48)
[2025-04-02 06:00] VITALS: BP 105/76; PULSE 87; RESP 18; TEMP 36.6; O2SAT 94
[2025-04-02] MEDS: paliperidone ER 6 mg Tablet PO (08:35)
[2025-04-02] MEDS: diphenhydrAMINE 50 mg/mL SDV 1mL IM ×2 (11:40→14:03)
[2025-04-02] MEDS: LORazepam 1 MG/0.5 ML injection 2 MG IM (11:42)
[2025-04-02] MEDS: haloperidol inj 5 mg/mL INJ 1 mL IM (11:42)
--- NOTE | 2025-04-02 13:07 | PC.NURSE ---
Jacy MARISA went into pt room to do rounding and found pt sitting on her bed myles cross hiding something up her shirt. The aid called for this nurse and I entered the room and instructed the pt to let me see what she was hiding. She initially shook her head no, but then soon after pulled out 2 pieces of tile she had removed off the bathroom floor. I instructed the pt to hand them to me and she again told me no. I informed her that she would need to hand them over or we would be calling security down to help up remove them. She handed the pieces over, but Dr Hill agreed that pt needed to go to seclusion for a while, because she had already received a B52 for a behavior just earlier and she can't be trusted to be alone. Pt refused to go to seclusion and then informed myself and ADAL Lynn that if we put her in seclusion she was going to harm herself. The decision was then made with Dr. Hill to put her in restraints. Pt refused to go onto the restraint bed willing so a code 10 was called. Pt was put into a manual hold and then transferred to the restraint bed. She was then wheeled to the restraint/seclusion room. She yelled and screamed through this transition. She was safely placed in the room with a 1:1 sitter.
[2025-04-02 14:00] VITALS: BP 112/67; PULSE 105; RESP 16; TEMP 36.8; O2SAT 98
[2025-04-02] MEDS: water for injection-sterile 10 ML (14:51)
--- NOTE | 2025-04-02 16:27 | PC.NURSE ---
@1138 pt complaining to staff that for lunch she did not recieve a cheeseburger and ff. this staff member informed pt that she was on a mechanical soft diet and that a cheeseburger was not considered mechanical soft. at that time pt started threatening to hurt herself stood up from bench near nurses station walked into her room slamming door, laying on her bed started to hit head against wall. stated she would hurt herself. at that time Anthony Joshi and Anthony Lynn came to assist with desculating pt. pt continued to attempt to hit head against wall. code 10 called janice Colby, nurses alex guthrie, security officers x2 along with house mover supervisor arrived to assit with code ten. patient escorted to isolation room placed in restraints. vital signs taken.
--- NOTE | 2025-04-02 18:33 | PC.NURSE ---
Pt was found in her room by aid scrapping her arms with appeared to be tile. Pt was immediately placed in a manual hold. Pt states that she tore it off the floor down in the dayroom. Pt was walked to the restraint bed and placed in four point restraints. She cooperated with minimal assistance. Dr. Hill was immediately notified and stated that pt was to stay in restraints at this time and to give her Zyprexa IM. [place] [facility] was notified that Dr. Hill ordered a 1:1 sitter for pt and one was provided. Wrists and ankles were checked for good circulation.
--- NOTE | 2025-04-02 19:51 | P.NPUPN_ITS ---
Subjective NPU 2 Subjective: Patient presented today reporting that things were okay. She continued to struggle with moments of losing her control and behaving in someway that has led to restraint and seclusion. She has received significant as needed medication and some episodes had to do with her frustration about what she was going to eat. We discussed the risks, benefits and alternatives of making some changes including Invega and Neurontin and she understood and agreed to proceed as is documented in this note. She denied any side effects of her medication. Mental Status Exam 2 MSE Comments: This is an obese white female in hospital scrubs with limited grooming but adequate eye contact. No abnormal movements except for psychomotor retardation. Cooperative with exam in mild to moderate distress. Speech was slightly decreased rate and volume and childlike with speech impediment. Mood described as depressed, affect congruent and subdued. Thought process linear. Thought content: Patient endorsed suicidal ideation leading to hospitalization, but denied homicidal ideation, there were no delusions reported or noted, she she denied current auditory or visual hallucinations. Attention and concentration appeared intact and memory was somewhat reliable but none were formally tested. She is alert and oriented x 3. Insight and judgment appeared impaired and impulse control is impaired. Intellectual ability was impaired. Vitals/I&O/Wt Last Vital Signs Temp 98.2 F 04/02/25 14:00 Pulse 105 H 04/02/25 14:00 Resp 16 04/02/25 14:00 BP 112/67 04/02/25 14:00 Pulse Ox 98 04/02/25 14:00 O2 Del Method Room Air 04/02/25 14:00 Data NPU 03/25/25 17:17 03/25/25 17:17 A&P Assessment and plan 1. Self mutilating behavior: 2. Suicidal ideation: 3. Borderline personality disorder: 4. Pica: 5. PTSD (post-traumatic stress disorder): 6. Depression: 7. Borderline intellectual functioning: Plan: This is a 18-year-old white female with a long history of mental health issues including diagnoses of PTSD, borderline personality disorder and bipolar disorder with reports of frequent hospitalizations recently but none here since 2016. She presents with likely intellectual disability, poor impulse control, reports that she has uncontrollable pica and self-injurious behavior. 1. Will attempt to get some previous records from recent hospitalizations to understand where we got to these multiple medications and make changes as indicated. Restarted BuSpar and increased to 20 mg p.o. 3 times daily. Started propranolol 20 mg p.o. 3 times daily as needed and trying to get records from detention. Added Neurontin 100 mg p.o. 3 times daily. Increased Neurontin to 300 mg p.o. 4 times daily. Added Invega 6 mg p.o. daily. 2. Encourage individual, group and milieu therapy. 3. Continue every 15 minute checks for safety. Patient has been on one-to-one during the day after significant difficulties overnight last night. But was taken off. Multiple seclusions today. 4. Obtain collateral information. 5. Monitor against the backdrop of the 96-hour hold. PDMP PDMP Reviewed: Not Reviewed Involuntary Hold Information 2 Hold Status: Legal Status: 96 Hour Hold Date/Time Hold Expires: 03/31/25 Attestations NPU 2 Medical Necessity Statement*: Inpatient hospitalization is medically necessary and the clinically appropriate intervention at this time. We will monitor/initiate medications and make changes as indicated. Likely length of stay 4 to 6 days. Coding Level of Care Code Acute Code for Chg Fwd Diagnoses Self mutilating behavior Z72.89 Suicidal ideation R45.851 Borderline personality disorder F60.3 Pica F50.89 PTSD (post-traumatic stress disorder) F43.10 Depression F32.A Borderline intellectual functioning R41.83
[2025-04-02 20:01] VITALS: BP 123/67; PULSE 96; RESP 18; O2SAT 98
--- NOTE | 2025-04-02 20:08 | XRR_ITS ---
PROCEDURE INFORMATION: Exam: XR Abdomen Exam date and time: 04/02/2025 8:59 PM Age: 29 years old Clinical indication: Constipation TECHNIQUE: Imaging protocol: Radiologic exam of the abdomen. Views: Frontal supine view of the abdomen. 1 View. COMPARISON: No relevant prior studies available. FINDINGS: Gastrointestinal tract: Normal. No bowel dilation. Large colonic stool burden. Cholecystectomy clips project over right upper quadrant. Bones/joints: Unremarkable. XR/XR KUB portable [id number] IMPRESSION: No acute findings. Large colonic stool burden, which may be seen with constipation in the appropriate clinical setting.
[2025-04-02] MEDS: ketoconazole Shampoo 120 mL Btl 1 APPLIC TOPICAL (21:00)
[2025-04-03] MEDS: neomycin-poly-bacitracin oint 28 gm 1 APPLIC TOPICAL (05:53)
[2025-04-03 06:00] VITALS: BP 102/70; PULSE 78; RESP 18; TEMP 36.5; O2SAT 97
[2025-04-03] MEDS: paliperidone ER 6 mg Tablet PO (07:11)
[2025-04-03] MEDS: diphenhydrAMINE 50 mg/mL SDV 1mL IM ×3 (08:29→13:38)
[2025-04-03] MEDS: LORazepam 1 MG/0.5 ML injection 2 MG IM (08:30)
[2025-04-03] MEDS: haloperidol inj 5 mg/mL INJ 1 mL IM (08:30)
--- NOTE | 2025-04-03 08:30 | PC.NURSE ---
Pt. started to self harm by scratching her harm one on one alerted signee to this. Pt. stated she was going to kill herself. Blankets was removed from pt.'s room. pt. started yelling rape over and over and then said do you want to suck my pussy repeatedly. pt. got into the shower to avoid security being able to touch her. Pt. finally got out of the shower and walked to her room and sat down to receive B-52 inj. Pt. is pacing back and forth with one on one at this time still agitated, but not currently self harming.
[2025-04-03 10:29] VITALS: BP 111/78; PULSE 105; RESP 18; TEMP 37.1; O2SAT 95
[2025-04-03] MEDS: water for injection-sterile 10 ML (11:23)
--- NOTE | 2025-04-03 11:54 | PC.NURSE ---
restraint removal pt left wrist restraint remove at 1150 am. pulse WNL. cap refill WNL. pt does have an abrasion on the left wrist from when she previously self- harmed. it is not bleeding at this time.
[2025-04-03 12:03] VITALS: BP 110/76; PULSE 91; RESP 18; TEMP 36.6; O2SAT 98
--- NOTE | 2025-04-03 13:03 | PC.NURSE ---
Pt. stated she was still hungry. Signee called dietary for another cheeseburger, but pt. was getting into the trash eating things and ripped up some of the trim off the poon and pt. is now placed in restraints again.
[2025-04-03] MEDS: haloperidol inj 5 mg/mL INJ 1 mL 10 MG IM (13:38)
[2025-04-03 14:00] VITALS: BP 120/69; PULSE 89; RESP 17; TEMP 36.3; O2SAT 99
--- NOTE | 2025-04-03 15:00 | PC.NURSE ---
Pt. refused scheduled Busporine. Dr. Hill said to DC the order.
--- NOTE | 2025-04-03 15:11 | PC.NURSE ---
left arm released at 1433, right arm released at 1452, left leg released at 1455, right leg released at `1500
--- NOTE | 2025-04-03 16:41 | W.PM.NPUPNS ---
Subjective NPU Subjective: Patient presented today reporting that things were bad. She continued to struggle with moments of losing her control and behaving in a way that has led to restraint and seclusion. She has received significant as needed medication and some episodes had to do with her frustration about what she was going to eat. She continued to have many somatic complaints. She denied any side effects of her medication. Mental Status Exam MSE Comments: This is an obese white female in hospital scrubs with limited grooming but adequate eye contact. No abnormal movements except for psychomotor retardation. Cooperative with exam in mild to moderate distress. Speech was slightly decreased rate and volume and childlike with speech impediment. Mood described as depressed, affect congruent and subdued. Thought process linear. Thought content: Patient endorsed suicidal ideation leading to hospitalization, but denied homicidal ideation, there were no delusions reported or noted, she she denied current auditory or visual hallucinations. Attention and concentration appeared intact and memory was somewhat reliable but none were formally tested. She is alert and oriented x 3. Insight and judgment appeared impaired and impulse control is impaired. Intellectual ability was impaired. Vitals/I&O/Wt Last Vital Signs Temp 97.4 F L 04/03/25 14:00 Pulse 89 04/03/25 14:00 Resp 17 04/03/25 14:00 BP 120/69 04/03/25 14:00 Pulse Ox 99 04/03/25 14:00 O2 Del Method Room Air 04/03/25 14:00 Data NPU 03/25/25 17:17 03/25/25 17:17 A&P Assessment and plan 1. Self mutilating behavior: 2. Suicidal ideation: 3. Borderline personality disorder: 4. Pica: 5. PTSD (post-traumatic stress disorder): 6. Depression: 7. Borderline intellectual functioning: Plan: This is a 29-year-old white female with a long history of mental health issues including diagnoses of PTSD, borderline personality disorder and bipolar disorder with reports of frequent hospitalizations recently but none here since 2016. She presents with likely intellectual disability, poor impulse control, reports that she has uncontrollable and self-injurious behavior. 1. Will attempt to get some previous records from recent hospitalizations to understand where we got to these multiple medications and make changes as indicated. Restarted BuSpar and increased to 20 mg p.o. 3 times daily. Started propranolol 20 mg p.o. 3 times daily as needed and trying to get records from shelter. Added Neurontin 100 mg p.o. 3 times daily. Increased Neurontin to 300 mg p.o. 4 times daily. Added Invega 6 mg p.o. daily. 2. Encourage individual, group and milieu therapy. 3. Continue every 15 minute checks for safety. Patient has been on one-to-one during the day after significant difficulties overnight last night. But was taken off. Multiple seclusions today. 4. Obtain collateral information. 5. Monitor against the backdrop of the 96-hour hold. PDMP PDMP Reviewed: Not Reviewed Involuntary Hold Information Hold Status: Legal Status: 96 Hour Hold Date/Time Hold Expires: 04/23/2025 Attestations NPU Medical Necessity Statement*: Inpatient hospitalization is medically necessary and the clinically appropriate intervention at this time. We will monitor/initiate medications and make changes as indicated. Likely length of stay 7-10 days. Coding Level of Care Code Acute Code for [facility] Fwd Diagnoses Self mutilating behavior Z72.89 Suicidal ideation R45.851 Borderline personality disorder F60.3 Pica F50.89 PTSD (post-traumatic stress disorder) F43.10 Depression F32.A Borderline intellectual functioning R41.83
--- NOTE | 2025-04-03 21:00 | PC.NURSE ---
vs not completed per charge nurse resp 16
--- NOTE | 2025-04-04 04:26 | PC.NURSE ---
Patient woke up requesting the night medications she had refused previously. Given prn Haldol, gabapentin and cogentin.
[2025-04-04 06:00] VITALS: BP 121/72; PULSE 91; RESP 19; TEMP 36.6; O2SAT 98
[2025-04-04] MEDS: ketoconazole Shampoo 120 mL Btl 1 APPLIC TOPICAL (08:39)
[2025-04-04] MEDS: paliperidone ER 6 mg Tablet PO (08:40)
[2025-04-04 14:00] VITALS: BP 106/72; PULSE 105; RESP 18; TEMP 36.8; O2SAT 97
--- NOTE | 2025-04-04 14:36 | XRR_ITS ---
PROCEDURE INFORMATION: Exam: XR Abdomen Exam date and time: 04/04/2025 3:47 PM Age: 29 years old Clinical indication: Other: Swallowed foreign body; Additional info: Swallowed a battery TECHNIQUE: Imaging protocol: Radiologic exam of the abdomen. Views: Frontal supine view of the abdomen. 1 View. COMPARISON: CR (ABDOMEN, ) 04/02/2025 8:59 PM FINDINGS: Gastrointestinal tract: Nonobstructive bowel gas pattern. Large colonic stool burden. Bones/joints: Unremarkable. Other findings: 5.7 cm radiopaque tubular object projects over left hemiabdomen. XR/XR KUB portable [id number] IMPRESSION: 5.7cm radiopaque tubular object projects over left hemiabdomen.
--- NOTE | 2025-04-04 16:08 | PC.NURSE ---
Pt c/o incontinence of urine when she passes gas. Dr. Hill gave a v/o for a UA with microscopic and a CBC. Orders have been placed.
--- NOTE | 2025-04-04 16:23 | PC.NURSE ---
Pt c/o of abd pain. I spoke with Dr. Hill and he ordered another KUB and to go ahead and prescribe the pt miralax. Orders have been placed.
[2025-04-04 16:30] LABS: Hematocrit 37.4 % (36-47); Hemoglobin 12.00 g/dL (11.27-16.99); Mean Corpuscular HGB Conc 32.1 g/dL (30-55); Mean Corpuscular Hemoglobin 27.2 pg (27-33); Mean Corpuscular Volume 84.8 fl (85-98); Nucleated Red Blood Cells % 0 %; Platelet Count 297 10^3/cmm (157-399); Red Blood Count 4.41 10^6/uL (3.85-5.65); White Blood Count 8.65 10^3/uL (3.29-11.43)
[2025-04-04 17:33] LABS: Glucose Urine UA Negative (Normal); Nitrate Urine Negative (Negative); Specific Gravity, Urine 1.011 (1.005-1.030)
[2025-04-04 19:55] VITALS: BP 107/64; PULSE 107; RESP 18; TEMP 36.8; O2SAT 98
[2025-04-04] MEDS: haloperidol inj 5 mg/mL INJ 1 mL IM (20:52)
[2025-04-04] MEDS: LORazepam 1 MG/0.5 ML injection 2 MG IM (20:52)
[2025-04-04] MEDS: diphenhydrAMINE 50 mg/mL SDV 1mL IM (20:52)
--- NOTE | 2025-04-04 20:53 | PC.NURSE ---
This RN was called to patients room by sindhuter. Found patient sitting in shower attempting to scratch her left arm. Patient verbally de escalated and redirected. Patient was given Haldol 5 mg IM, lorazepam 2 mg IM left deltoid and diphenhydramine 50 mg IM right deltoid. Patient is now resting with sitter at bedside. Patient verbalized that she will let staff know when she feels like she needs to self harm.
--- NOTE | 2025-04-04 21:27 | P.NPUPN_ITS ---
Subjective NPU 2 Subjective: Patient presented today continuing to be really focused on medication changes and somatic complaints. We discussed the fact that we can only manage so much at once and that there is no way to continue to make an adjustment every day to multiple different things just because they come to her mind. We discussed that we would be deliberate and consider each change appropriately and not go on a whim each day. We discussed the risks, benefits and alternatives of increasing her Invega to 9 mg p.o. daily and she understood and agreed to proceed as is documented in this note. She denied any side effects to her medications. Mental Status Exam 2 MSE Comments: This is an obese white female in hospital scrubs with limited grooming but adequate eye contact. No abnormal movements except for psychomotor retardation. Cooperative with exam in mild distress. Speech was slightly decreased rate and volume and childlike with speech impediment. Mood described as anxious, affect congruent but less subdued. Thought process linear. Thought content: Patient endorsed suicidal ideation leading to hospitalization, but denied homicidal ideation, there were no delusions reported or noted, she she denied current auditory or visual hallucinations. Attention and concentration appeared intact and memory was somewhat reliable but none were formally tested. She is alert and oriented x 3. Insight and judgment appeared impaired and impulse control is impaired. Intellectual ability was impaired. Vitals/I&O/Wt Last Vital Signs Temp 98.3 F 04/04/25 19:55 Pulse 107 H 04/04/25 19:55 Resp 18 04/04/25 19:55 BP 107/64 04/04/25 19:55 Pulse Ox 98 04/04/25 19:55 O2 Del Method Room Air 04/04/25 19:55 Weight last 48 hrs Weight 93.984 kg Data NPU 04/04/25 16:18 03/25/25 17:17 A&P Assessment and plan 1. Self mutilating behavior: 2. Suicidal ideation: 3. Borderline personality disorder: 4. Pica: 5. PTSD (post-traumatic stress disorder): 6. Depression: 7. Borderline intellectual functioning: Plan: This is a 29-year-old white female with a long history of mental health issues including diagnoses of PTSD, borderline personality disorder and bipolar disorder with reports of frequent hospitalizations recently but none here since 2016. She presents with likely intellectual disability, poor impulse control, reports that she has uncontrollable and self-injurious behavior. 1. Will attempt to get some previous records from recent hospitalizations to understand where we got to these multiple medications and make changes as indicated. Restarted BuSpar and increased to 20 mg p.o. 3 times daily. Started propranolol 20 mg p.o. 3 times daily as needed and trying to get records from long term. Added Neurontin 100 mg p.o. 3 times daily. Increased Neurontin to 300 mg p.o. 4 times daily. Added Invega 6 mg p.o. daily. Increase Invega to 9 mg p.o. daily. 2. Encourage individual, group and milieu therapy. 3. Continue every 15 minute checks for safety. Patient has been on one-to-one during the day after significant difficulties overnight last night. But was taken off. Multiple seclusions today. 4. Obtain collateral information. 5. Monitor against the backdrop of the 96-hour hold. PDMP PDMP Reviewed: Not Reviewed Involuntary Hold Information 2 Hold Status: Legal Status: 96 Hour Hold Date/Time Hold Expires: 04/23/2025 Attestations NPU 2 Medical Necessity Statement*: Inpatient hospitalization is medically necessary and the clinically appropriate intervention at this time. We will monitor/initiate medications and make changes as indicated. Likely length of stay 7-10 days. Coding Level of Care Code Acute Code for [facility] Fwd Diagnoses Self mutilating behavior Z72.89 Suicidal ideation R45.851 Borderline personality disorder F60.3 Pica F50.89 PTSD (post-traumatic stress disorder) F43.10 Depression F32.A Borderline intellectual functioning R41.83
[2025-04-05 06:00] VITALS: BP 108/64; PULSE 95; RESP 18; O2SAT 97
[2025-04-05] MEDS: neomycin-poly-bacitracin oint 28 gm 1 APPLIC TOPICAL (06:08)
[2025-04-05 07:35] VITALS: BP 117/77; PULSE 95; RESP 18; TEMP 36.6; O2SAT 95
[2025-04-05] MEDS: paliperidone ER 6 mg Tablet PO (08:20)
[2025-04-05] MEDS: polyethylene glycol 3350 Pkt 17 gm PO (08:29)
--- NOTE | 2025-04-05 08:30 | P.NPUPN_ITS ---
Subjective NPU 2 Subjective: Patient presented today continuing to have struggles that she has had during her stay. Per staff reports and direct observation. She has continued to bounce between being on one-to-one and every 15 minute checks. She has continued to have moments where she reports overwhelming anxiety though there is no outward change in her demeanor. She has been in restraints and had as needed medication multiple times in the past 24 hours again. She is now saying that she did so much better when she was in penitentiary when they put her on the Ativan however then she said that the time period of this experiment was 2 weeks or less. We discussed benzodiazepines as a long-term plan as something that tends to be problematic. She also continued to have multiple somatic complaints now having some foot pain and concerns about seizures as resurfaced. We discussed the fact that there is no seizure disorder that is controlled by 50 mg of Topamax. We discussed the fact that Dr. Banegas would be here tomorrow and she denied any side effects of the medication. Mental Status Exam 2 MSE Comments: This is an obese white female in hospital scrubs with limited grooming but adequate eye contact. No abnormal movements except for psychomotor retardation. Cooperative with exam in mild distress. Speech was slightly decreased rate and volume and childlike with speech impediment. Mood described as anxious, affect congruent but less subdued. Thought process linear. Thought content: Patient endorsed suicidal ideation leading to hospitalization, but denied homicidal ideation, there were no delusions reported or noted, she she denied current auditory or visual hallucinations. Attention and concentration appeared intact and memory was somewhat reliable but none were formally tested. She is alert and oriented x 3. Insight and judgment appeared impaired and impulse control is impaired. Intellectual ability was impaired. Vitals/I&O/Wt Last Vital Signs Temp 98.3 F 04/04/25 19:55 Pulse 95 04/05/25 06:00 Resp 18 04/05/25 06:00 BP 108/64 04/05/25 06:00 Pulse Ox 97 04/05/25 06:00 O2 Del Method Room Air 04/05/25 06:00 Weight last 48 hrs Weight 93.984 kg Data NPU 04/04/25 16:18 03/25/25 17:17 A&P Assessment and plan 1. Self mutilating behavior: 2. Suicidal ideation: 3. Borderline personality disorder: 4. Pica: 5. PTSD (post-traumatic stress disorder): 6. Depression: 7. Borderline intellectual functioning: Plan: This is a 29-year-old white female with a long history of mental health issues including diagnoses of PTSD, borderline personality disorder and bipolar disorder with reports of frequent hospitalizations recently but none here since 2016. She presents with likely intellectual disability, poor impulse control, reports that she has uncontrollable and self-injurious behavior. 1. Will attempt to get some previous records from recent hospitalizations to understand where we got to these multiple medications and make changes as indicated. Restarted BuSpar and increased to 20 mg p.o. 3 times daily. Started propranolol 20 mg p.o. 3 times daily as needed and trying to get records from penitentiary. Added Neurontin 100 mg p.o. 3 times daily. Increased Neurontin to 300 mg p.o. 4 times daily. Added Invega 6 mg p.o. daily. Increase Invega to 9 mg p.o. daily. Resume BuSpar at 30 mg p.o. 3 times daily. 2. Encourage individual, group and milieu therapy. 3. Continue every 15 minute checks for safety. Patient has been on one-to-one during the day after significant difficulties overnight last night. But was taken off. Multiple seclusions today. 4. Obtain collateral information. 5. Monitor against the backdrop of the 96-hour hold. PDMP PDMP Reviewed: Not Reviewed Involuntary Hold Information 2 Hold Status: Legal Status: 96 Hour Hold Date/Time Hold Expires: 04/23/2025 Attestations NPU 2 Medical Necessity Statement*: Inpatient hospitalization is medically necessary and the clinically appropriate intervention at this time. We will monitor/initiate medications and make changes as indicated. Likely length of stay 7-10 days. Coding Level of Care Code Acute Code for [facility] Fwd Diagnoses Self mutilating behavior Z72.89 Suicidal ideation R45.851 Borderline personality disorder F60.3 Pica F50.89 PTSD (post-traumatic stress disorder) F43.10 Depression F32.A Borderline intellectual functioning R41.83
[2025-04-05 09:31] VITALS: BP 111/79; PULSE 95; RESP 16; TEMP 36.4; O2SAT 95
[2025-04-05] MEDS: ketoconazole Shampoo 120 mL Btl 1 APPLIC TOPICAL (10:42)
--- NOTE | 2025-04-05 11:40 | PC.NURSE ---
went into room for rounding & patient was sitting in floor in shower scratching at her left forearm. cupola charger notified. this nurse & cupola charger had to manually hold bilateral wrists to prevent patient from self harm attempt by scratching. patient had torn off a piece of large Styrofoam cup & told nursing staff she would hurt herself with it, that shes done it before. security called to unit. security x2 assisted patient back to bed. patient verbally de-escalated by nursing staff. no prn meds given. patient took lunch tray down to day room & is currently eating. staff will cont to monitor closely
--- NOTE | 2025-04-05 12:25 | PC.NURSE ---
PATIENT ATTEMPTS SELF HARM VIA SCRATCHING. WENT INTO BATHROOM SLAMMING DOORS & SCRATCHING AT HER ARMS. SECURITY CALLED TO UNIT, MANUAL HOLD TO ASSIST PATIENT TO BED & PATIENT BECAME VERBALLY & PHYSICALLY AGGRESSIVE WITH STAFF, CALLING STAFF ROXANNE AND VIJI VERBAL ORDER GIVEN FOR HALDOL 10 MG IM WITH BENADRYL 50 MG IM ONCE TO GIVE PRIOR TO PATIENT ACTING OUT, MEDS NOT YET EFFECTIVE. PATIENT CONT TO THRASH IN BED & BEING VERBALLY/PHYSICALLY AGGRESSIVE WITH STAFF. RESTRAINT BED BROUGHT TO BEDSIDE & PATIENT TRANSFERRED TO RESTRAINT BED VIA SECURITY/NURSING STAFF. PATIENT CONT TO BE VERBALLY AGGRESSIVE TOWARDS STAFF, ATTEMPTING TO FREE LIMBS FROM RESTRAINTS. STAFF ATTEMPTS TO GET VITAL SIGNS BUT PATIENT THRASHING AROUND IN RESTRAINT BED STAFF IS UNABLE TO OBTAIN BLOOD PRESSURE OR TEMPT CURRENTLY BUT PATIENT IS NOT APPEARING TO BE IN RESP DISTRESS. ENGINEERING SUPPLIES SALES & LANDSCAPE PHOTOGRAPHER IN ROOM WITH PATIENT ALONG WITH SECURITY GUARDS. PER VERBAL ORDER FROM DR. JASON STAFF MUST WAIT FULL HOUR BETWEEN LAST INJECTIONS TO GIVE MORE PRN MEDS.
[2025-04-05] MEDS: haloperidol inj 5 mg/mL INJ 1 mL 10 MG IM ×2 (13:01→19:00)
[2025-04-05] MEDS: diphenhydrAMINE 50 mg/mL SDV 1mL IM ×3 (13:01→19:00)
[2025-04-05] MEDS: water for injection-sterile 10 ML ×2 (13:20→20:15)
[2025-04-05 14:00] VITALS: BP 106/64; PULSE 108; RESP 18; TEMP 36.4; O2SAT 96
--- NOTE | 2025-04-05 16:07 | PC.NURSE ---
At 1129 staff found pt in the shower of her room with a piece of styrofoam attempting to harm her arms with it. Stephanie ANGELICA and myself held her writsts to prevent further injury until security arrived. Once security arrived they assisted in removing pt from the shower and placing her in a manual hold on her bed. At this time we spoke with the pt and tried to get an idea of what had her so upset. She states that her anxiety is verena high and she wants Dr. Hill to prescribe Ativan and Buspar combination. We talked about how Dr. Hill isn't going to prescribe medications just because she demands to have them. At this time lunch was being served and after talking approx 8 min we were able to release the pt wrist and she agreed to go to the dayroom and eat her lunch without any further incident. At 1203 security was called again, because pt was found in her bathroom once again attempting to harm herself with her nails. Viktoria ANGELICA and myself got her out of the bathroom floor and sat her on the edge of her bed. The decision was made with Dr. Hill to give her 10mg Haldol IM and Benadryl 50mg IM. Pt took the injections willingly. and cont to sit in her room and rest. At 1223 staff and security once again entered the pt room after she shut herself in her bathroom and was attempting to swallow packets of creamer. She was removed from the bathroom and manually restrained on her bed until the restraint bed could be brought in. She was then transferred and restrained in 4 points by 1226, made it to seclusion by 1227. During this time pt was yelling profanities calling staff josie carrasquillo and telling us she would do everything she could to be sure she killed herself on this unit. We attempted to calm pt down and reason with her. She had to be manually held by staff in addition to the restraints to keep her from hurting herself in restraints. We were unable to obtain v/s due to pt not holding still enough. At 1315 pt was given Geodon and Benadryl IM (see MAR) Shortly after this we were able to begin talking with pt and getting her to calm down. At 1340 Rt leg was released. 1344 Lt Arm. 1349 Lt leg. 1353 Rt arm. She went to the bathroom straight away. No further incident. v/s at 1336 were 106 p and 97% o2.
--- NOTE | 2025-04-05 19:06 | PC.NURSE ---
patient found during rounding sitting in her room in bathroom/shower area with door closed. was scratching left forearm with Styrofoam cup she had tore apart. would not stop scratching or give piece of styrofoam to staff when asked. this nurse reached to grab right hand to keep patient from scratching herself further pt became verbally aggressive saying get your hand away from me now. instructional technology facilitator to room, security and code 10 called. patient assisted to restraint bed via several staff members. 4 point restraint & patient is verbally aggressive with staff calling psychiatric security nurse I'm going to kill you nigger! Dr. Hill notified via secure messaging about behavior/restraint. at this time patient cont to be disruptive, trashing about in restraint bed, yelling profanity at staff.
[2025-04-05 19:34] VITALS: BP 161/132
[2025-04-05 21:41] VITALS: BP 92/63; PULSE 110; RESP 18; TEMP 37; O2SAT 94
--- NOTE | 2025-04-06 00:35 | PC.NURSE ---
CODE 10/RESTRAINT At approximately 1845 this RN and day shift RN were doing report when nursing staff informed us that the pt is attempting to scratch herself with a cup and her nails. When nursing staff entered pts room she was sitting on the floor of her shower and scratching her left arm. When nursing staff attempted to talk to the pt she stated repeatedly that she would not stop and that she doesn't give a fuck. HS and security were notified at this time that staff was going to put pt in the restraint bed for her own safety. A Code 10 was called at 185. Pt was placed in restraint bed at 185 in her room and was rolled into the restraint room. Pt then began trying to slip out of restraints several times and started hitting her head on the bed. This caused several staff members to have to hold pt while actively in restraints. Dr. Hill was notified of restraint at 1853. While medications were being pulled pt began yelling and screaming at nursing staff to let go of her. Staff informed pt that if she continued to thrash around in the restraint bed that the bed could tip and asked her if she could stop moving so we could let go of her. Pt responded fuck you. Also during this time nursing staff attempted several times to get pts vitals however pt refused to stay still and would start screaming at the top of her lungs. Once medications were pulled Benadryl 50mg Im was given in pts dorsalgluteal and Haldol 10mg IM was given in Pts right dorsalgluteal at 190. During this time pt continued to try and get out of restraints while screaming homicidal statements towards nursing staff. For the next hour pt continued the same behaviors causing staff to have to hold her in the restraint bed. This nurse contacted Dr. Hill again at 1957 and requested more medications due to pts continued behaviors. Geodon 20mg IM was ordered at this time. At 1999 pt agreed to have vital signs taken- BP 124/74, HR 111, O2 98%. Pt was no longer trying to get out of restraints however pt still continued to try and hit her head against the bed. Geodon 20mg Im was given in pts right deltoid at 2014. Pt tolerated well. This nurse informed pt that if she could remain calm for 15 more minutes that we would start to release her from restraints and pt agreed. At 2029 pts vitals were taken again BP 107/73, HR 88, O2 97%. At 2028 pts right left was released from restraints. At 2038 pts left arm was released. At 2044 pts left leg was released. And lastly at 2049 pt was fully released from restraints. It was noted when pt was released from restraints that while scratching her left arm in her room she had opened up the skin and had been bleeding. This nurse cleaned the wound and left it open to air d/t pt stating that if we put any dressing on it she will try and eat them. Pt then immediately went and laid down in bed. Pt is now observed resting in bed quietly with eyes closed. Sitter at bedside. Behavioral monitoring continues
[2025-04-06 06:00] VITALS: BP 137/86; PULSE 99; RESP 19; TEMP 36.8; O2SAT 96
[2025-04-06] MEDS: diphenhydrAMINE 50 mg/mL SDV 1mL IM (08:02)
[2025-04-06] MEDS: haloperidol inj 5 mg/mL INJ 1 mL IM (08:03)
[2025-04-06] MEDS: haloperidol inj 5 mg/mL INJ 1 mL (08:05)
--- NOTE | 2025-04-06 08:06 | PC.NURSE ---
Pt. refused to come out of the bathroom and was screaming she was going to kill certain people.Patient was restrained by security and this nurse and easily escorted to the seclusion room. Pt then threw a violent fit and was moved to the restraint room and restrained where she received haloperidol 10mg IM and 50mg Benadryl IM.
[2025-04-06] MEDS: paliperidone ER 9 mg Tablet PO (08:39)
--- NOTE | 2025-04-06 08:48 | PC.NURSE ---
Patient refused haloperidol.
--- NOTE | 2025-04-06 08:49 | PC.NURSE ---
Sitter notified staff that she was making threats, that she was going to kill her and then went and shut herself in her bathroom. Staff entered the bathroom and found her sitting on the toilet with a blanket around her shoulders. This nurse asked pt what was going on. She states, I going to fucking kill her This nurse and Leah GALEAS attempted to ask pt why she was feeling this way. Pt states, None of your fucking business We informed her that this was inappropriate ways to speak with people and she stated, I don't fucking care I let the pt know that I was going to have to take the blanket from off her shoulders as this was not a safe way to use her blanket. She told me to not fucking touch her Leah RN and myself had to restrain her writst while Meryl CUNNINGHAM removed the blanket from around her. She pulled a fist back and we instructed her to not hit staff and she refrained. She cont to make threats to harm herself and kill the sitter. She was manually removed from the bathroom when she refused to come out. She was manually held and walked down to the seclusion room. She was cussing the staff the entire time. We placed her into the seclusion room and she immediately began taking her clothes. She removed her depends and put her pants back on. She then sat down on the mat and began to attempt to shred her depends to eat it. Leah and myself entered the room and removed the depends from her hands and gave to Meryl CUNNINGHAM. She then immediately began to claw and scrath her skin. We had to place her in another manual hold and move her to restraints. Pt fought staff and cussed and cont to make threats to kill. After restraints were in place staff had to cont to hold pt as she was thrashing around and trying to bang her head off the bed. She slowly began to calm down and lay still without trying to flip the bed. 0729 was seclusion and 0731 was restraints. Lt leg released 0856, Rt arm 0908, Rt leg 0922, and Lt arm 0932. Releasing v/s 09 113/79, 95%, 95p, and 97.6. She agreed to remain calm the remainder of the day and wanted to use the restroom and eat breakfast. Her tray was saved for her.
[2025-04-06] MEDS: polyethylene glycol 3350 Pkt 17 gm PO (09:38)
[2025-04-06 14:00] VITALS: BP 137/86; PULSE 99; RESP 19; TEMP 36.8; O2SAT 99
--- NOTE | 2025-04-06 15:20 | PC.NURSE ---
OT was going to take pt outside for a few min for group. Pt asked if she could go and we informed her that she did not have that as a privelage today, due to previous behaviors, we would reevaluate that tomorrow. Pt went into her room and began slamming doors and trying to shut herself in her bathroom. She then pulled her pants down and sat on the toilet so she could not be removed from the bathroom. Staff asked pt multiple times to come out and she refused. She finally did pull her pants up and come out of the bathroom. We informed pt that she was going to seclusion she couldn't be going around slamming doors and hurting herself because she was upset. Pt refused so she was put in a manual hold and assisted her to the seclusion room. She quickly sat down on the mattress and got quiet. We talked to her and let her know that this behavior was not going to be tolerated. She agreed. We told her that we were going to wait a few min before we let her out. She sat quietly this entire time and was released at 1510. No additional concerns at this time.
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
[2025-04-06 19:16] VITALS: BP 114/78; PULSE 96; RESP 18; TEMP 36.6; O2SAT 98
[2025-04-06] MEDS: ketoconazole Shampoo 120 mL Btl 1 APPLIC TOPICAL (19:28)
--- NOTE | 2025-04-06 19:28 | P.CONIM_ITS ---
Providers/Reason For Consult 2 Consulting Physician/Specialty*: Dr Sydnie Ba- hospitalist Reason for Consult*: Sharp abdominal pain status post 48 hours of battery swallowing Requesting Physician: Psychiatrist Dr. Looney Attending Physician: Abdon Banegas MD Primary Care Provider: Ozzie Ramirez MD History of Present Illness History of Present Illness Ann So is a 29 year old female who looks older than the stated age with impressive psychiatric illness significant for pica, borderline personality disorder, self mutilating disorder, borderline intellectual functioning, suicidal ideation, PTSD and depression who was admitted to the [facility] as a readmission after having been treated for suicidal ideation stabilized on lithium and trazodone discharge but now readmitted for PTSD from significant trauma in the past where patient now is having a lot of flashbacks and nightmares. Aside from this patient is still grieving for her mother that she lost some months ago, has worsening depression. This patient had been hospitalized in the [facility] and one of them had been [facility] outreach program and this people have provided her with various activity to keep her self busy. She is currently homeless and living in a homeless skilled nursing This psychiatrist who is the attending to this patient in the room Neuro[facility] called consulting the hospitalist to evaluate patient for a sharp abdominal pain following in house swallowing and battery 48 hours ago. Patient has sharp abdominal pain is in the left lower quadrant, it does not cross the midline, the abdominal pain is tender on palpation. This pain is not associated with any fever no nausea no vomiting patient is eating with no complaints. After the patient had swallowed the battery a KUB was done and it was noted in the KUB but there were no other follow-up on the KUB. The location of this sharp pain could be related to the battery swallowing but could be multifactorial and one of them could be diverticulitis since this is quite in the lower left lower quadrant and very localized tenderness. I will order a KUB to compare with the 1 that was ordered a year and also I will get a CT scan for more comprehensive evaluation likely patient might have diverticulitis or if focal area of pain and tenderness due to the ovarian swallowing. Review of Systems 2 Narrative: System review upon 10 organ review we are only significant for abdominal pain GI in origin otherwise unremarkable Medications/Allergies Home Medications ?Medication ?Instructions ?Recorded ?Confirmed ?Last Taken ?Type No Known Home Medications 03/29/25/ Unknown History Allergies Allergy/AdvReac Type Severity Reaction Status Date / Time adhesive tape Allergy ALGY-Hives Verified 03/25/25 20:06 chlorpromazine (From Allergy ADR-Agitate Verified 03/25/25 20:06 Thorazine) d ketorolac Allergy ADR-Agitate Verified 03/25/25 20:06 d shellfish derived Allergy ALGY-Hives Verified 03/25/25 20:06 Current Medications Generic Name Dose Route Start Last Admin Trade Name Freq PRN Reason Stop Dose Admin Acetaminophen 650 mg 03/26/25 09:12 04/06/25 17:21 Acetaminophen 325 Mg Tablet PO 650 mg Q4H PRN Administration MILD PAIN Benztropine Mesylate 1 mg 03/26/25 23:11 04/06/25 17:21 Benztropine 1 Mg Tablet PO 1 mg BID HINA Administration Buspirone HCl 20 mg 04/06/25 21:00 04/06/25 19:22 Buspirone 10 Mg Tablet PO 20 mg TID HINA Administration Diazepam 5 mg 04/06/25 21:00 04/06/25 19:23 Diazepam 5 Mg Tablet PO 5 mg 2100 HINA Administration Diphenhydramine HCl 50 mg 03/26/25 09:12 04/06/25 08:02 Diphenhydramine 50 Mg/Ml Sdv 1ml IM 50 mg ONCE PRN Administration Severe Extrapyramidal Symptoms Diphenhydramine HCl 50 mg 03/31/25 16:11 04/05/25 19:00 Diphenhydramine 50 Mg/Ml Sdv 1ml IM 50 mg Q4H PRN Administration Severe Aggression Docusate Sodium 200 mg 03/28/25 06:34 04/04/25 07:57 Docusate Sodium 100 Mg Capsule PO 200 mg DAILY PRN Administration CONSTIPATION Gabapentin 300 mg 04/02/25 21:00 04/06/25 19:23 Gabapentin 300 Mg Capsule PO 300 mg QID HINA Administration Haloperidol 10 mg 03/26/25 23:11 04/06/25 17:21 Haloperidol 5 Mg Tablet PO 10 mg BID HINA Administration Haloperidol 5 mg 03/31/25 16:11 04/06/25 08:42 Haloperidol 5 Mg Tablet PO 5 mg Q4H PRN Administration AGITATION Haloperidol Lactate 5 mg 03/26/25 09:12 04/06/25 08:03 Haloperidol Inj 5 Mg/Ml Inj 1 Ml IM 5 mg Q4H PRN Administration Severe Aggression Haloperidol Lactate 10 mg 04/05/25 19:02 04/05/25 19:00 Haloperidol Inj 5 Mg/Ml Inj 1 Ml IM 10 mg Q4H PRN Administration AGITATION Hydroxyzine Pamoate 50 mg 03/27/25 18:56 04/04/25 19:55 Hydroxyzine 25 Mg Capsule PO 50 mg QID PRN Administration ANXIETY Ibuprofen 400 mg 04/04/25 19:27 04/06/25 19:22 Ibuprofen 200 Mg Tablet PO 400 mg TID PRN Administration MILD PAIN OR INCREASE TEMP Ketoconazole 1 applic 03/31/25 19:35 04/05/25 10:42 Ketoconazole Shampoo 120 Ml Btl TOPICAL 1 applic DAILY PRN Administration DRY SCALP Loperamide HCl 2 mg 03/28/25 11:23 03/28/25 12:09 Loperamide 2 Mg Capsule PO 2 mg QID PRN Administration DIARRHEA Lorazepam 2 mg 03/30/25 13:00 04/04/25 20:52 Lorazepam 1 Mg/0.5 Ml Injection IM 2 mg PRN PRN Administration AGITATION Magnesium Hydroxide 30 ml 03/27/25 11:15 04/01/25 06:30 Magnesium Hydroxide 30 Ml Udc PO 30 ml BID PRN Administration CONSTIPATION Neomycin/Polymyxin/Bacitracin 1 applic 03/27/25 19:54 04/05/25 06:08 Tpaidupg-Wuuz-Ilonafoucp Oint 28 Gm TOPICAL 1 applic BID PRN Administration IRRITATION Olanzapine 5 mg 03/26/25 09:12 04/05/25 21:13 Olanzapine 5 Mg Odt PO 5 mg Q4H PRN Administration Agitation/Psychosis Ondansetron HCl 4 mg 04/01/25 20:50 04/06/25 12:10 Ondansetron 4 Mg Tablet PO 4 mg Q6H PRN Administration NAUSEA AND VOMITING Paliperidone 9 mg 04/05/25 09:00 04/06/25 08:39 Paliperidone Er 9 Mg Tablet PO 9 mg DAILY HINA Administration Pantoprazole Sodium 40 mg 04/02/25 07:00 04/06/25 07:[address] 40 Mg Tablet PO 40 mg 0700 HINA Administration Polyethylene Glycol 17 gm 04/05/25 09:00 04/06/25 09:38 Polyethylene Glycol 3350 Pkt 17 Gm PO 17 gm DAILY HINA Administration Propranolol HCl 10 mg 03/28/25 17:14 04/06/25 15:33 Propranolol 20 Mg Tablet PO 10 mg TID PRN Administration ANXIETY Quetiapine Fumarate 200 mg 04/01/25 20:51 04/02/25 20:58 Quetiapine 100 Mg Tablet PO 200 mg BEDTIME PRN Administration SLEEP Trazodone HCl 100 mg 03/31/25 19:37 04/06/25 19:23 Trazodone 100 Mg Tablet PO 100 mg BEDTIME PRN Administration INSOMNIA Ziprasidone 20 mg 04/05/25 12:46 04/05/25 13:20 Ziprasidone 20 Mg/Ml Sdv IM 20 mg Q12H PRN Administration severe agitation/aggression Vitals/I&O/Wt Last Vital Signs Temp 97.9 F 04/06/25 19:16 Pulse 96 04/06/25 19:16 Resp 18 04/06/25 19:16 BP 114/78 04/06/25 19:16 Pulse Ox 98 04/06/25 19:16 O2 Del Method Room Air 04/06/25 06:00 04/06/25 04/06/25 04/06/25 06:59 14:59 22:59 Intake Total Balance Weight last 48 hrs Weight 93.984 kg Physical Exam 2 Narrative: Generally patient is well in no apparent distress standing up and conversant with other clients. HEENT normocephalic atraumatic Neck neck is supple Cardiovascular heart rate is regular Lungs are clear Abdomen is soft nontender nondistended except for a localized area of the left lower quadrant of the abdomen that is tender unremarkable Extremities are intact no edema has good pulses Neurology has no focality Lab studies reviewed and noted at this visit as of the 16th of this month Data 04/04/25 16:18 03/25/25 17:17 A&P Assessment and plan 1. Left lower quadrant pain: 2. Impulse control disorder, unspecified: 3. Borderline intellectual functionin. PTSD (post-traumatic stress disorder): 5. Pica: 6. Borderline personality disorder: 7. Self mutilating behavior: 8. Suicidal ideation: 9. Depression: Plan: 1.Left lower quadrant pain cannot rule out acute diverticulitis versus inflammatory foci from toxic battery - Will repeat KUB to see and visualize the battery half i.e. has traveled through the GI tract - Will obtain a CT scan with contrast studies to further evaluate for diverticulitis and any other pathology - Will await for CT scan and studies - Obtain chemistry and CBC and lactate and sed rate and C reactive protein - Will evaluate and follow-up with the CT and KUB and optimize accordingly depending on the findings 2. Worsening depression, suicidal ideation, manipulating behavior, borderline personality disorder, pica, PTSD underlying intellectual functioning, always mentioned psychiatric disorder deferred for this psychiatrist for care which psychiatry has been managing while in the neuro psych. 3. GI and DVT prophylaxis in place PDMP PDMP Reviewed: Not Reviewed Consult Attestations 2 Medical Necessity Statement: Patient is already in the [facility] been treated I have been consulted for abdominal pain further comment on this will depend on the finding of diagnostic workup I am doing at this time leading diagnosis acute diverticulitis versus toxic effect of swallowed battery patient is already receiving psychiatric care and this evaluation will be targeted for any length of stay once the workup is done at least 1 to 2 days Coding Level of Care Code 72436 Diagnoses Left lower quadrant pain R10.32 Impulse control disorder, unspecified F63.9 Borderline intellectual functioning R41.83 PTSD (post-traumatic stress disorder) F43.10 Pica F50.89 Borderline personality disorder F60.3 Self mutilating behavior Z72.89 Suicidal ideation R45.851 Depression F32.A Time Spent (min) 60
--- NOTE | 2025-04-06 20:23 | XRR_ITS ---
PROCEDURE INFORMATION: Exam: XR Abdomen Exam date and time: 04/06/2025 8:58 PM Age: 29 years old Clinical indication: Other: Swallowed battery; Additional info: Patient status post vigil swallowing 48 hours ago, locate the battery in kub and comment on the progression of TECHNIQUE: Imaging protocol: Radiologic exam of the abdomen. Views: Frontal supine view of the abdomen. 1 View. COMPARISON: CR (ABDOMEN, ) 04/04/2025 3:47 PM FINDINGS: Tubes, catheters and devices: Elongated metallic 5.9 x 1.6 cm foreign body overlying the left upper abdomen, consistent with reported history of battery ingestion. Gastrointestinal tract: Moderate fecal load. Nonobstructive bowel gas pattern. Intraperitoneal space: Limited evaluation for free air. Bones/joints: Unremarkable. XR/XR KUB portable [id number] IMPRESSION: See above.
--- NOTE | 2025-04-06 20:30 | CTR_ITS ---
PROCEDURE INFORMATION: Exam: CT Abdomen And Pelvis With Contrast Exam date and time: 04/06/2025 9:04 PM Age: 29 years old Clinical indication: Abdominal pain; Generalized; Prior surgery; Surgery date: 6+ months; Surgery type: Gb, hernia, object removal; Additional info: Swallowed battery 48 hours with now lower left quadrant abdo, patient developed abdominal pain today status post a swallow TECHNIQUE: Imaging protocol: Computed tomography of the abdomen and pelvis with contrast. Radiation optimization: All CT scans at this facility use at least one of these dose optimization techniques: automated exposure control; mA and/or kV adjustment per patient size (includes targeted exams where dose is matched to clinical indication); or iterative reconstruction. Contrast material: OMNI 350; Contrast volume: 100 ml; Contrast route: INTRAVENOUS (IV); COMPARISON: CR (ABDOMEN, ) 04/06/2025 8:58 PM RADIATION DOSE METRICS: Total DLP (mGy-cm): 938 FINDINGS: Pleural spaces: Trace pleural effusions with atelectasis. Liver: Unremarkable. Gallbladder and biliary ducts: Absent gallbladder. Pancreas: Unremarkable. Spleen: Unremarkable. Adrenal glands: Unremarkable. Kidneys and ureters: Unremarkable. No urinary tract stone or dilation. Stomach and bowel: Elongated metallic object in the stomach, consistent with reported history of battery ingestion. No bowel obstruction. Moderate fecal load. Appendix: Normal appendix. Intraperitoneal space: No free air. No large fluid collection. Vasculature: No abdominal aortic aneurysm. Lymph nodes: No enlarged lymph nodes. Urinary bladder: Unremarkable as visualized. Reproductive: No obvious abnormality. Bones/joints: No acute fracture. Soft tissues: Unremarkable. CT/CT abdomen pelvis w con* [id number] IMPRESSION: 1. Metallic foreign body in the stomach. 2. Trace pleural effusions.
--- NOTE | 2025-04-06 20:57 | PC.NURSE ---
PATIENT TRANSFERED TO CT AND X-RAY PER WHEEL CHAIR, ACCOMPANIED BY ANNETTE HERNANDEZ AND ARPITA GALEAS, WITH CURTIS CAREY.
[2025-04-06] MEDS: iohexol 350 mg/mL 500 mL Btl (per mL) IV (21:01)
[2025-04-06 21:42] LABS: Hematocrit 34.0 % (36-47); Hemoglobin 11.00 g/dL (11.27-16.99); Mean Corpuscular HGB Conc 32.4 g/dL (30-55); Mean Corpuscular Hemoglobin 27.6 pg (27-33); Mean Corpuscular Volume 85.4 fl (85-98); Nucleated Red Blood Cells % 0 %; Platelet Count 235 10^3/cmm (157-399); Red Blood Count 3.98 10^6/uL (3.85-5.65); White Blood Count 6.68 10^3/uL (3.29-11.43)
[2025-04-06 22:07] LABS: Alanine Aminotransferase 11 U/L (0-33); Albumin Level 3.6 g/dL (3.5-5.2); Alkaline Phosphatase 90 U/L (35-105); Anion Gap 14.1 (5-19); Aspartate Amino Transferase 19 U/L (0-32); Blood Urea Nitrogen 20 mg/dL (6-20); Calcium 8.9 mg/dL (8.5-10.5); Carbon Dioxide 26 mmol/L (22-29); Chloride 104 mmol/L (98-107); Creatinine Clr Calc Pharmacy 118.7801; Globulin 2.1 g/dL (1.3-4.6); Glucose 101 mg/dL (65-115); Lactate (Lactic Acid level) 0.9 mmol/L (0.5-2.2); Osmolality Calculated 293 mOsm/kg (285-295); Potassium 4.1 mmol/L (3.5-5.1); Sodium 140 mmol/L (136-145); Total Protein 5.7 g/dL (6.6-8.7)
[2025-04-06 23:46] LABS: CRP High Sensitivity Cardiac < 0.150 mg/dL (0.0-0.3)
--- NOTE | 2025-04-07 02:01 | PC.NURSE ---
sitter at bedside at this time. pt resting eyes closed, in no acute distress at this time.
[2025-04-07 06:00] VITALS: BP 118/76; PULSE 88; RESP 20; O2SAT 96
[2025-04-07] MEDS: paliperidone ER 9 mg Tablet PO (08:02)
[2025-04-07] MEDS: polyethylene glycol 3350 Pkt 17 gm PO (08:09)
--- NOTE | 2025-04-07 08:45 | XRR_ITS ---
PROCEDURE INFORMATION: Exam: XR Abdomen Exam date and time: 04/07/2025 8:55 AM Age: 29 years old Clinical indication: Screening exam; Other: F/u ingested aa battery TECHNIQUE: Imaging protocol: Radiologic exam of the abdomen. Views: Frontal supine view of the abdomen. 1 View. COMPARISON: CT abdomen pelvis w con* [id number] 04/06/2025 9:04 PM FINDINGS: Gastrointestinal tract: Remaining bowel-gas is nonspecific. Bones/joints: Unremarkable. Other findings: There is a cylindrical metallic density overlying the gastric shadow measuring 1.8 x 4.9 cm. XR/XR KUB [id number] IMPRESSION: There is a cylindrical metallic density overlying the gastric shadow measuring 1.8 x 4.9 cm.
--- NOTE | 2025-04-07 09:03 | PC.NURSE ---
Dr. Feldman saw pt this morning and gave orders to change pts diet to clear liquid for the rest of the day and to change it to NPO after midnight.
[2025-04-07] MEDS: METOCLOPRAMIDE HCL 10 MG/10 ML UDC PO ×2 (09:10→16:48)
--- NOTE | 2025-04-07 09:33 | P.CONIM_ITS ---
Providers/Reason For Consult 2 Consulting Physician/Specialty*: General Surgery Reason for Consult*: Ingested cylindrical battery Attending Physician: Abdon Banegas MD Primary Care Provider: Ozzie Ramirez MD History of Present Illness History of Present Illness Ann So is a 29 year old female with history of pica and who is currently admitted to the [facility] who had swallowed a AA battery about 5 days ago. Yesterday she was complaining abdominal pain so she got a CAT scan that showed evidence of the battery still at the level of the stomach. I was consulted for this finding Review of Systems 2 General: Reports: 10 or more systems reviewed and unremarkable except in HPI and below Medications/Allergies Home Medications ?Medication ?Instructions ?Recorded ?Confirmed ?Last Taken ?Type No Known Home Medications 03/29/2503/11 Unknown History Allergies Allergy/AdvReac Type Severity Reaction Status Date / Time adhesive tape Allergy ALGY-Hives Verified 03/25/25 20:06 chlorpromazine (From Allergy ADR-Agitate Verified 03/25/25 20:06 Thorazine) d ketorolac Allergy ADR-Agitate Verified 03/25/25 20:06 d shellfish derived Allergy ALGY-Hives Verified 03/25/25 20:06 Current Medications Generic Name Dose Route Start Last Admin Trade Name Freq PRN Reason Stop Dose Admin Acetaminophen 650 mg 03/26/25 09:12 04/06/25 17:21 Acetaminophen 325 Mg Tablet PO 650 mg Q4H PRN Administration MILD PAIN Benztropine Mesylate 1 mg 03/26/25 23:11 04/07/25 08:27 Benztropine 1 Mg Tablet PO 1 mg BID HINA Administration Buspirone HCl 20 mg 04/06/25 21:00 04/07/25 08:03 Buspirone 10 Mg Tablet PO 20 mg TID HINA Administration Diazepam 5 mg 04/06/25 21:00 04/06/25 19:23 Diazepam 5 Mg Tablet PO 5 mg 2100 HINA Administration Diphenhydramine HCl 50 mg 03/26/25 09:12 04/06/25 08:02 Diphenhydramine 50 Mg/Ml Sdv 1ml IM 50 mg ONCE PRN Administration Severe Extrapyramidal Symptoms Diphenhydramine HCl 50 mg 03/31/25 16:11 04/05/25 19:00 Diphenhydramine 50 Mg/Ml Sdv 1ml IM 50 mg Q4H PRN Administration Severe Aggression Docusate Sodium 200 mg 03/28/25 06:34 04/04/25 07:57 Docusate Sodium 100 Mg Capsule PO 200 mg DAILY PRN Administration CONSTIPATION Gabapentin 300 mg 04/02/25 21:00 04/07/25 08:03 Gabapentin 300 Mg Capsule PO 300 mg QID HINA Administration Haloperidol 10 mg 03/26/25 23:11 04/07/25 08:00 Haloperidol 5 Mg Tablet PO 10 mg BID HINA Administration Haloperidol 5 mg 03/31/25 16:11 04/06/25 08:42 Haloperidol 5 Mg Tablet PO 5 mg Q4H PRN Administration AGITATION Haloperidol Lactate 5 mg 03/26/25 09:12 04/06/25 08:03 Haloperidol Inj 5 Mg/Ml Inj 1 Ml IM 5 mg Q4H PRN Administration Severe Aggression Haloperidol Lactate 10 mg 04/05/25 19:02 04/05/25 19:00 Haloperidol Inj 5 Mg/Ml Inj 1 Ml IM 10 mg Q4H PRN Administration AGITATION Hydroxyzine Pamoate 50 mg 03/27/25 18:56 04/04/25 19:55 Hydroxyzine 25 Mg Capsule PO 50 mg QID PRN Administration ANXIETY Ibuprofen 400 mg 04/04/25 19:27 04/06/25 19:22 Ibuprofen 200 Mg Tablet PO 400 mg TID PRN Administration MILD PAIN OR INCREASE TEMP Ketoconazole 1 applic 03/31/25 19:35 04/06/25 19:28 Ketoconazole Shampoo 120 Ml Btl TOPICAL 1 applic DAILY PRN Administration DRY SCALP Loperamide HCl 2 mg 03/28/25 11:23 03/28/25 12:09 Loperamide 2 Mg Capsule PO 2 mg QID PRN Administration DIARRHEA Lorazepam 2 mg 03/30/25 13:00 04/04/25 20:52 Lorazepam 1 Mg/0.5 Ml Injection IM 2 mg PRN PRN Administration AGITATION Magnesium Hydroxide 30 ml 03/27/25 11:15 04/01/25 06:30 Magnesium Hydroxide 30 Ml Udc PO 30 ml BID PRN Administration CONSTIPATION Metoclopramide HCl 10 mg 04/07/25 09:00 04/07/25 09:10 Metoclopramide Hcl 10 Mg/10 Ml Udc PO 04/08/25 09:00 10 mg Q8H HINA Administration Neomycin/Polymyxin/Bacitracin 1 applic 03/27/25 19:54 04/05/25 06:08 Ugpuynzx-Yxys-Cyxzmqoqmk Oint 28 Gm TOPICAL 1 applic BID PRN Administration IRRITATION Olanzapine 5 mg 03/26/25 09:12 04/05/25 21:13 Olanzapine 5 Mg Odt PO 5 mg Q4H PRN Administration Agitation/Psychosis Ondansetron HCl 4 mg 04/01/25 20:50 04/07/25 08:21 Ondansetron 4 Mg Tablet PO 4 mg Q6H PRN Administration NAUSEA AND VOMITING Paliperidone 9 mg 04/05/25 09:00 04/07/25 08:02 Paliperidone Er 9 Mg Tablet PO 9 mg DAILY HINA Administration Pantoprazole Sodium 40 mg 04/02/25 07:00 04/07/25 07:[address] 40 Mg Tablet PO 40 mg 0700 HINA Administration Polyethylene Glycol 17 gm 04/05/25 09:00 04/07/25 08:09 Polyethylene Glycol 3350 Pkt 17 Gm PO 17 gm DAILY HINA Administration Propranolol HCl 10 mg 03/28/25 17:14 04/06/25 15:33 Propranolol 20 Mg Tablet PO 10 mg TID PRN Administration ANXIETY Quetiapine Fumarate 200 mg 04/01/25 20:51 04/02/25 20:58 Quetiapine 100 Mg Tablet PO 200 mg BEDTIME PRN Administration SLEEP Topiramate 50 mg 04/07/25 09:00 04/07/25 08:28 Topiramate 100 Mg Tablet PO 50 mg BID HINA Administration Trazodone HCl 100 mg 03/31/25 19:37 04/06/25 19:23 Trazodone 100 Mg Tablet PO 100 mg BEDTIME PRN Administration INSOMNIA Ziprasidone 20 mg 04/05/25 12:46 04/05/25 13:20 Ziprasidone 20 Mg/Ml Sdv IM 20 mg Q12H PRN Administration severe agitation/aggression Vitals/I&O/Wt Last Vital Signs Temp 97.9 F 04/06/25 19:16 Pulse 88 04/07/25 06:00 Resp 20 H 04/07/25 06:00 BP 118/76 04/07/25 06:00 Pulse Ox 96 04/07/25 06:00 O2 Del Method Room Air 04/07/25 06:00 Physical Exam 2 GI: OTHER: This is a benign abdominal examination abdomen soft nontender nondistended Data 04/06/25 21:25 04/06/25 21:25 A&P Assessment and plan 1. Pica: 2. Foreign body in stomach: Plan: 29-year-old female who had swallowed a cylindrical battery. Currently stable normal vital signs normal laboratory workup and normal physical examination. Majority of cylindrical batteries usually are eventually passed into the stool without the need for endoscopic evaluation. Since the battery has been around 5 days in the stomach I will plan to keep the patient on a clear liquid diet today and n.p.o. after midnight. Will obtain a repeat x-ray of the abdomen tomorrow morning and if the battery continues to be in the stomach I will offer to proceed to the endoscopy suite for attempted retrieval. Per my evaluation of imaging at this point the stomach in the CAT scan is shown to be full of food and therefore immediate endoscopic evaluation is not recommended as it is unlikely that we will be able to visualize the battery. In the case that the battery passes past the pylorus no need for endoscopic evaluation will be needed as it is expected for it to pass in the stool. I discussed all risk benefits of the possible endoscopic evaluation with the patient including the risk of perforation need for additional interventions and need for transfer to higher level of care she shows understanding agrees to proceed as needed. PDMP PDMP Reviewed: Not Reviewed Coding Level of Care Code 65401 Diagnoses Pica F50.89 Foreign body in stomach T18.2XXA
[2025-04-07 14:00] VITALS: BP 100/68; PULSE 95; RESP 18; TEMP 37.2; O2SAT 98
--- NOTE | 2025-04-07 15:58 | W.PM.NPUPNS ---
Subjective NPU Subjective: 29-year-old female with a history of extended stay in inpatient facilities with a history of borderline personality disorder, anxiety disorder and impulse control disorder. The patient continued to appear to have a battery lodged in her stomach. She had not yet required any restraint or seclusion or additional as needed medications. She had reported abdominal discomfort. She had slept better with the Valium last night but woke up at 1 AM to receive imaging studies. The patient had endorsed having swallowed a variety of objects throughout her time in hospitals including shards of pencil and razor blades along with other batteries. She had endorsed having been hospitalized for 6 years in a [facility] hospital facility with a history of poor impulse control and reports of chronic feelings of hopelessness. She had not endorsed any suicidal thoughts today. She continued to complain of left lower quadrant abdominal discomfort. Mental Status Exam MSE Comments: This is an obese white female in hospital scrubs with limited grooming but adequate eye contact. No abnormal movements except for psychomotor retardation. She was cooperative with exam in mild distress. Speech was slightly decreased in rate and volume and childlike with speech impediment. Mood described as okay. Her affect was flat. Thought process was linear. Thought content: Patient endorsed intermittent suicidal ideation leading to hospitalization, but denied homicidal ideation, there were no delusions reported or noted, she she denied current auditory or visual hallucinations. Attention and concentration appeared intact and memory was somewhat reliable but none were formally tested. She is alert and oriented x 3. Insight and judgment appeared impaired and impulse control is impaired. Intellectual ability was commensurate with mild cognitive impairment. Vitals/I&O/Wt Last Vital Signs Temp 97.9 F 04/06/25 19:16 Pulse 88 04/07/25 06:00 Resp 20 H 04/07/25 06:00 BP 118/76 04/07/25 06:00 Pulse Ox 96 04/07/25 06:00 O2 Del Method Room Air 04/07/25 06:00 Data NPU 04/06/25 21:25 04/06/25 21:25 A&P Assessment and plan 1. Impulse control disorder, unspecified: 2. Self mutilating behavior: 3. Suicidal ideation: 4. Borderline personality disorder: 5. Pica: 6. PTSD (post-traumatic stress disorder): 7. Depression: 8. Borderline intellectual functioning: Plan: This is a 29-year-old white female with a long history of mental health issues including diagnoses of PTSD, borderline personality disorder and bipolar disorder with reports of frequent hospitalizations recently but none here since 2016. She presents with likely intellectual disability, poor impulse control, reports that she has uncontrollable and self-injurious behavior. 1. Continue valium 10mg at night, consider prazosin for ptsd related nightmares, continue buspar 20mg tid, restarted topamax for migraine 50mg bid. KUB to determine location of apparently ingested battery. Patient likely to be on NPO midnight and may require removal of battery through EGD. 2. Encourage individual, group and milieu therapy. 3. Continue 1-1 today. 4. Obtain collateral information. 5. Monitor against the backdrop of the 96-hour hold. PDMP PDMP Reviewed: Not Reviewed Involuntary Hold Information Hold Status: Legal Status: 96 Hour Hold Date/Time Hold Expires: 04/23/2025 Attestations NPU Medical Necessity Statement*: Inpatient hospitalization is medically necessary and the clinically appropriate intervention at this time. We will monitor/initiate medications and make changes as indicated. Likely length of stay 7-10 days. Coding Level of Care Code Acute Code for Chg Fwd Diagnoses Impulse control disorder, unspecified F63.9 Self mutilating behavior Z72.89 Suicidal ideation R45.851 Borderline personality disorder F60.3 Pica F50.89 PTSD (post-traumatic stress disorder) F43.10 Depression F32.A Borderline intellectual functioning R41.83
[2025-04-07 19:37] VITALS: BP 125/81; PULSE 90; RESP 18; TEMP 37.1; O2SAT 97
[2025-04-08] MEDS: METOCLOPRAMIDE HCL 10 MG/10 ML UDC PO ×5 (00:45→20:38)
--- NOTE | 2025-04-08 05:52 | XRR_ITS ---
PROCEDURE INFORMATION: Exam: XR Abdomen Exam date and time: 04/08/2025 6:02 AM Age: 29 years old Clinical indication: Condition or disease and screening exam; Other: Swallowed battery; Other: F/u; Prior surgery; Surgery date: 6+ months; Surgery type: Gb hernia; Additional info: F/u gastric foreign body TECHNIQUE: Imaging protocol: Radiologic exam of the abdomen. Views: Frontal supine view of the abdomen. 1 View. COMPARISON: CR XR KUB [id number] 04/07/2025 8:55 AM FINDINGS: Gastrointestinal tract: A man made object projects in the pelvis. This measures 5.5 x 1.6 cm in size. It may represent a battery or electrical device. It may be within either small bowel or colon. Bones/joints: Unremarkable. XR/XR abdomen 1V* [id number] IMPRESSION: Ingested object projects in the pelvis.
[2025-04-08 06:00] VITALS: BP 112/75; PULSE 86; RESP 20; TEMP 36.8; O2SAT 97
--- NOTE | 2025-04-08 06:50 | P.PN_ITS ---
Subjective 2 Subjective: Excellent progression over the last 24 hours. no abdominal pain, good bowel function Vitals/I&O/Wt Last Vital Signs Temp 98.3 F 04/08/25 06:00 Pulse 86 04/08/25 06:00 Resp 20 H 04/08/25 06:00 BP 112/75 04/08/25 06:00 Pulse Ox 97 04/08/25 06:00 O2 Del Method Room Air 04/07/25 19:37 Physical Exam 2 GI: OTHER: abdomen is soft, non tender and non distended Data 04/06/25 21:25 04/06/25 21:25 A&P Assessment and plan 1. Gastrointestinal foreign body: Plan: Xray obtained this morning shows the cylindrical battery at the level of the pelvis. since battery is now in the lower GI tract there is no need for endoscopy. Weekly Xrays can be done to verify passage of battery. otherwise once battery is noted in the stool a confirmatory Xray can be obtained. We will start Gi soft diet, will continue metoclopramida for 48 hours and give a dose of mag citrate to facilitate passage of foreign body. No additional intervention is recommended from the surgical standpoint. PDMP PDMP Reviewed: Not Reviewed Attestations 2 Medical Necessity Statement*: per primary team Coding Level of Care Code Acute Code for Chg Fwd Diagnoses Gastrointestinal foreign body T18.9XXA
[2025-04-08] MEDS: paliperidone ER 9 mg Tablet PO (07:41)
[2025-04-08] MEDS: polyethylene glycol 3350 Pkt 17 gm PO (07:49)
[2025-04-08] MEDS: magnesium citrate Btl 296 mL 150 ML PO (08:30)
[2025-04-08] MEDS: neomycin-poly-bacitracin oint 28 gm 1 APPLIC TOPICAL (09:54)
--- NOTE | 2025-04-08 10:16 | P.PN_ITS ---
Subjective 2 Subjective: 29-year-old female with obesit y, borderline intellectual and history of swallowing foreign body object states that she has swallowed toothbrush, batteries in the past, a pen parts of bracelets states she just does not think when she does it but just does it. She states she has had them removed from her stomach but once they have gotten past her stomach they voice passed in her stool. She admits to being constipated last few days and is agreeable to a laxative but nurse reports she is already given mag citrate at [address] Feldman's order. Patient states she had small bowel movement yesterday but no large ones yet. She is interested in losing weight and reports right foot pain and flatfeet. She had asked for double portions but as we discussed weight loss she is willing to have a diabetic weight loss diet. She states she lost 60 pounds on Ozempic in the past Vitals/I&O/Wt Last Vital Signs Temp 98.3 F 04/08/25 06:00 Pulse 86 04/08/25 06:00 Resp 20 H 04/08/25 06:00 BP 112/75 04/08/25 06:00 Pulse Ox 97 04/08/25 06:00 O2 Del Method Room Air 04/07/25 19:37 Physical Exam 2 Narrative: General Well-developed well-nourished obese female in no acute cardiopulmonary stress CV regular rate and rhythm Lungs clear to auscultation bilaterally Abdomen diminished but present bowel tones soft nontender no rebound Calves trace ankle edema Left foot the hallux joint is not inflamed or tender to palpation. She is able to freely move it. Standing her feet are kind of flat. Palpation of the right first MTP demonstrates no tenderness Data 04/06/25 21:25 04/06/25 21:25 A&P Assessment and plan 1. Gastrointestinal foreign body: This has passed from the stomach down into the intestines based on x-ray. This should continue to pass. Dr. Feldman is already given some mag citrate. Will monitor stool 2. Borderline intellectual functioning: Patient is cooperative but does not give good reasoning for why she is swallowing foreign body objects. She is agreeable and requests weight loss diet 3. Borderline personality disorder: As above 4. Self mutilating behavior: As above 5. Obesity (BMI 30.0-34.9): Start 1500-calorie ADA diet no sugars or sweetened desserts. Patient agreeable to fruit for snacks 6. Prediabetes: A1c actually 5. She states that she had diabetes for 3 years when she was heavier PDMP PDMP Reviewed: Not Reviewed Attestations 2 Medical Necessity Statement*: Patient leola in the hospital for monitoring and passing foreign body object given her underlying mental illness Coding Level of Care Code 64793 Diagnoses Gastrointestinal foreign body T18.9XXA Borderline intellectual functioning R41.83 Borderline personality disorder F60.3 Self mutilating behavior Z72.89 Obesity (BMI 30.0-34.9) E66.811 Prediabetes R73.03 Time Spent (min) 35
[2025-04-08] MEDS: diphenhydrAMINE 50 mg/mL SDV 1mL IM (12:54)
--- NOTE | 2025-04-08 12:55 | PC.NURSE ---
Pt. escalating stated she does not want a one on one sitter is in the shower in her room sitting in it slamming the doors and not allowing the sitter to watch her. Pt. refused to take a prn Haldol. Security was called and talked with pt. after security left the room pt. began to yell saying she did not want a sitter over and over again. Shots of Hansel and Grayson was pulled and pt. willingly took the shots.
[2025-04-08 14:00] VITALS: BP 120/77; PULSE 63; RESP 18; TEMP 36.8; O2SAT 98
[2025-04-08] MEDS: water for injection-sterile 10 ML (15:05)
--- NOTE | 2025-04-08 15:07 | PC.NURSE ---
Pt. is requesting her Valium BID instead of once a day.
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
[2025-04-08 19:21] VITALS: BP 124/82; PULSE 96; RESP 18; TEMP 37; O2SAT 97
[2025-04-09 06:00] VITALS: BP 118/81; PULSE 83; RESP 16; TEMP 36.6; O2SAT 95
[2025-04-09] MEDS: METOCLOPRAMIDE HCL 10 MG/10 ML UDC PO ×4 (07:29→21:39)
[2025-04-09] MEDS: paliperidone ER 9 mg Tablet PO (08:05)
[2025-04-09] MEDS: polyethylene glycol 3350 Pkt 17 gm PO (08:13)
--- NOTE | 2025-04-09 09:20 | P.PN_ITS ---
Subjective 2 Subjective: 29-year-old female with obesit y, borderline intellectual and history of swallowing foreign body object remains in the hospital with her borderline personality disorder and impulsivity. She complains to me what to do about her left foot that hurts when she walks. She states that she wears the slide on slippers until her feet hurt. She states she walks all day until it hurts then she gets off of them. Her attendant points out that she is walking on her foot all day. Patient states her battery has not passed yet but that she has no abdominal pain. She is tolerating reduced calorie diet which she started this morning. She states she can eat cantaloupe because she cannot chew it. She states she does chew grapes and would appreciate her food be small or chopped. Vitals/I&O/Wt Last Vital Signs Temp 97.8 F 04/09/25 06:00 Pulse 83 04/09/25 06:00 Resp 16 04/09/25 06:00 BP 118/81 04/09/25 06:00 Pulse Ox 95 04/09/25 06:00 O2 Del Method Room Air 04/09/25 06:00 Physical Exam 2 Narrative: General Well-developed well-nourished obese female in no acute cardiopulmonary stress CV regular rate and rhythm Lungs clear to auscultation bilaterally Abdomen diminished but present bowel tones soft nontender no rebound Data 04/06/25 21:25 04/06/25 21:25 A&P Assessment and plan 1. Gastrointestinal foreign body: Monitor stool for battery to pass. If does not pass then would obtain x-ray every second day 2. Borderline intellectual functioning: Patient is cooperative but does not give good reasoning for why she is swallowing foreign body objects. 3. Borderline personality disorder: As above 4. Obesity (BMI 30.0-34.9): Start 1500-calorie ADA diet no sugars or sweetened desserts. Patient agreeable to fruit for snacks. Will request that her food be chopped. Continue on weight loss diet 5. Prediabetes: A1c actually 5. She states that she had diabetes for 3 years when she was heavier 6. Foot pain, left: Examination demonstrates no acute abnormality. She has flatfeet and walks a lot. Recommend arch support with lace up shoes however she is restricted from that due to history of recurrent dangerous foreign body ingestions and impulsive behavior PDMP PDMP Reviewed: Not Reviewed Attestations 2 Medical Necessity Statement*: Patient leola in the hospital under care of Dr. Delatorre Coding Level of Care Code 68681 Diagnoses Gastrointestinal foreign body T18.9XXA Borderline intellectual functioning R41.83 Borderline personality disorder F60.3 Obesity (BMI 30.0-34.9) E66.811 Prediabetes R73.03 Foot pain, left M79.672 Time Spent (min) 25
[2025-04-09 14:00] VITALS: BP 112/70; PULSE 97; RESP 17; TEMP 36.4; O2SAT 98
--- NOTE | 2025-04-09 17:19 | P.NPUPN_ITS ---
Subjective NPU 2 Subjective: 29-year-old female with a history of ext ended stay in inpatient facilities with a history of borderline personality disorder, anxiety disorder and impulse control disorder. Patient had continued to make numerous demands asking that she be taken off one-to-one. She did not have any acts of aggression today but did require as needed Haldol earlier. She had continued report having intense periods of anger. She continued to complain of a variety of problems as she stated that she had some numbing and tingling in her feet. She did not complain of any problems with micturition. She remained on one-to-one observation. She continued to endorse having occasional nightmares and stated that she is struggled with trusting others. She had minimized having any suicidal or homicidal ideation and stated that she would like to go to [facility] when discharged. She had reported no recent headaches with the initiation of Topamax. Mental Status Exam 2 MSE Comments: This is an obese white female in hospital scrubs with limited grooming but adequate eye contact. No abnormal movements except for psychomotor retardation. She was cooperative with exam in mild distress. Speech was slightly decreased in rate and volume and childlike with speech impediment. Mood described as okay. Her affect was restricted. Thought process was linear. Thought content: Patient denied suicidal or homicidal ideation, there were no delusions reported or noted, she she denied current auditory or visual hallucinations. Attention and concentration appeared intact and memory was somewhat reliable but none were formally tested. She is alert and oriented x 3. Insight and judgment appeared impaired and impulse control is impaired. Intellectual ability was commensurate with mild cognitive impairment. Vitals/I&O/Wt Last Vital Signs Temp 97.5 F L 04/09/25 14:00 Pulse 97 04/09/25 14:00 Resp 17 04/09/25 14:00 BP 112/70 04/09/25 14:00 Pulse Ox 98 04/09/25 14:00 O2 Del Method Room Air 04/09/25 06:00 Data NPU 04/06/25 21:25 04/06/25 21:25 A&P Assessment and plan 1. Impulse control disorder, unspecified: 2. Self mutilating behavior: 3. Suicidal ideation: 4. Borderline personality disorder: 5. Pica: 6. PTSD (post-traumatic stress disorder): 7. Depression: 8. Borderline intellectual functioning: Plan: This is a 29-year-old white female with a long history of mental health issues including diagnoses of PTSD, borderline personality disorder and bipolar disorder with reports of frequent hospitalizations recently but none here since 2016. She presents with likely intellectual disability, poor impulse control, reports that she has uncontrollable and self-injurious behavior. 1. Continue valium 7.5mg at night, consider prazosin for ptsd related nightmares, continue buspar 20mg tid, continue topamax for migraine at 50mg bid. Continue invega 9mg daily, reduce Haldol to 5mg in AM, 10mg at night. increase gabapentin 400mg qid. 2. Encourage individual, group and milieu therapy. 3. Continue 1-1 today. 4. Obtain collateral information. 5. Monitor against the backdrop of the 96-hour hold. PDMP PDMP Reviewed: Not Reviewed Involuntary Hold Information 2 Hold Status: Legal Status: 96 Hour Hold Date/Time Hold Expires: 04/23/2025 Attestations NPU 2 Medical Necessity Statement*: Inpatient hospitalization is medically necessary and the clinically appropriate intervention at this time. We will monitor/initiate medications and make changes as indicated. Likely length of stay 7-10 days. Coding Level of Care Code Acute Code for g Fwd Diagnoses Impulse control disorder, unspecified F63.9 Self mutilating behavior Z72.89 Suicidal ideation R45.851 Borderline personality disorder F60.3 Pica F50.89 PTSD (post-traumatic stress disorder) F43.10 Depression F32.A Borderline intellectual functioning R41.83
[2025-04-09 20:18] VITALS: BP 106/73; PULSE 90; RESP 16; TEMP 36.5; O2SAT 98
[2025-04-09] MEDS: neomycin-poly-bacitracin oint 28 gm 1 APPLIC TOPICAL (21:33)
[2025-04-10 06:00] VITALS: BP 127/86; PULSE 81; RESP 18; O2SAT 98
[2025-04-10] MEDS: METOCLOPRAMIDE HCL 10 MG/10 ML UDC PO (06:07)
[2025-04-10] MEDS: ketoconazole Shampoo 120 mL Btl 1 APPLIC TOPICAL (06:14)
--- NOTE | 2025-04-10 06:26 | XRR_ITS ---
PROCEDURE INFORMATION: Exam: XR Abdomen Exam date and time: 04/10/2025 7:41 AM Age: 29 years old Clinical indication: Condition or disease; Other: Foreign body; Additional info: F/u foreign body TECHNIQUE: Imaging protocol: Radiologic exam of the abdomen. Views: Frontal supine view of the abdomen. 1 View. COMPARISON: CR (ABDOMEN, ) 04/08/2025 6:02 AM FINDINGS: Gastrointestinal tract: There is excessive colonic stool content. Consistent with constipation. Intraperitoneal space: Cylindrical shaped foreign body observed in the left lower quadrant measuring 5.6 x 1.7 centimeters. Bones/joints: Unremarkable. XR/XR KUB portable [id number] IMPRESSION: 1. There is excessive colonic stool content. Consistent with constipation. 2. Cylindrical shaped foreign body observed in the left lower quadrant measuring 5.6 x 1.7 centimeters.
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
[2025-04-10] MEDS: paliperidone ER 6 mg Tablet 12 MG PO (08:23)
[2025-04-10] MEDS: polyethylene glycol 3350 Pkt 17 gm PO (08:24)
[2025-04-10 14:00] VITALS: BP 100/68; PULSE 92; RESP 16; TEMP 36.6; O2SAT 100
--- NOTE | 2025-04-10 18:24 | P.NPUPN_ITS ---
Subjective NPU 2 Subjective: 29-year-old female with a history of ext ended stay in inpatient facilities with a history of borderline personality disorder, antisocial personality disorder, anxiety disorder and impulse control disorder. Patient reported wanting a tag that others had on her wrist as she stated that it had been helpful for allowing her to know whether she had self-control as she had intimated having swallowed that piece of paper and plastic before on other admissions. The patient had continued to complain somatically and stated that she wished to get more help for her stomach. She had allegedly passed her battery today through her bowels. She reported that she would like to get off of one-to-one today and would like to return back to [facility]. She had continued to report having problems with urination. She complained of having numbing and tingling in her feet. She had required as needed medications for agitation yesterday but stated that she felt less tired with the slight reduction in Haldol given routinely. She had minimized any suicidal or homicidal ideation at this time. Mental Status Exam 2 MSE Comments: This is an obese white female in hospital scrubs with limited grooming but adequate eye contact. No abnormal movements except for psychomotor retardation. She was cooperative with exam in mild distress. Speech was slightly decreased in rate and volume and childlike with speech impediment. Mood described as better. Her affect was subdued. Thought process was linear. Thought content: Patient denied suicidal or homicidal ideation, there were no delusions reported or noted, she she denied current auditory or visual hallucinations. Attention and concentration appeared intact and memory was somewhat reliable but none were formally tested. She is alert and oriented x 3. Insight and judgment appeared impaired and impulse control is impaired. Intellectual ability was commensurate with mild cognitive impairment. Vitals/I&O/Wt Last Vital Signs Temp 97.9 F 04/10/25 14:00 Pulse 92 04/10/25 14:00 Resp 16 04/10/25 14:00 BP 100/68 04/10/25 14:00 Pulse Ox 100 04/10/25 14:00 O2 Del Method Room Air 04/10/25 06:00 Data NPU 04/06/25 21:25 04/06/25 21:25 A&P Assessment and plan 1. Impulse control disorder, unspecified: 2. Self mutilating behavior: 3. Suicidal ideation: 4. Borderline personality disorder: 5. Pica: 6. PTSD (post-traumatic stress disorder): 7. Depression: 8. Borderline intellectual functioning: Plan: This is a 29-year-old white female with a long history of mental health issues including diagnoses of PTSD, borderline personality disorder and bipolar disorder with reports of frequent hospitalizations recently but none here since 2016. She presents with likely intellectual disability, poor impulse control, reports that she has uncontrollable and self-injurious behavior. 1. Continue valium 7.5mg at night, consider prazosin for ptsd related nightmares, continue buspar 20mg tid, continue topamax for migraine at 50mg bid. Continue invega 9mg daily, reduce Haldol to 5mg in AM, 10mg at night. continue gabapentin 400mg qid. Add tamsulosin as previously prescribed at .4mg daily 2. Encourage individual, group and milieu therapy. 3. Continue 1-1 today. 4. Obtain collateral information. 5. Monitor against the backdrop of the 96-hour hold. PDMP PDMP Reviewed: Not Reviewed Involuntary Hold Information 2 Hold Status: Legal Status: 96 Hour Hold Date/Time Hold Expires: 04/23/2025 Attestations NPU 2 Medical Necessity Statement*: Inpatient hospitalization is medically necessary and the clinically appropriate intervention at this time. We will monitor/initiate medications and make changes as indicated. Likely length of stay 7-10 days. Coding Level of Care Code Acute Code for Chg Fwd Diagnoses Impulse control disorder, unspecified F63.9 Self mutilating behavior Z72.89 Suicidal ideation R45.851 Borderline personality disorder F60.3 Pica F50.89 PTSD (post-traumatic stress disorder) F43.10 Depression F32.A Borderline intellectual functioning R41.83
[2025-04-10 20:34] VITALS: BP 98/60; PULSE 92; RESP 16; TEMP 36.5; O2SAT 97
[2025-04-10 22:23] VITALS: BP 100/72
[2025-04-11] MEDS: ketoconazole Shampoo 120 mL Btl 1 APPLIC TOPICAL (04:33)
[2025-04-11 06:00] VITALS: BP 118/82; PULSE 93; RESP 18; TEMP 36.5; O2SAT 99
[2025-04-11] MEDS: paliperidone ER 6 mg Tablet 12 MG PO (07:37)
[2025-04-11] MEDS: polyethylene glycol 3350 Pkt 17 gm PO (07:37)
--- NOTE | 2025-04-11 09:28 | PC.NURSE ---
Pt. is upset because someone took her hair tie last night and she is now demanding another hair tie. Signee said no to the hair tie and pt. is now throwing a fit because she wants a hair tie. Security is in the room talking with her.
--- NOTE | 2025-04-11 09:36 | P.PN_ITS ---
Subjective 2 Subjective: Patient was seen and evaluated at bedside this morning. She denied abdominal pain. She stated that she passed the battery in her bowel movement this morning. She denied abdominal distention or or constipation. She is tolerating a regular carbohydrate consistent diet. Vitals/I&O/Wt Last Vital Signs Temp 97.7 F 04/11/25 06:00 Pulse 93 04/11/25 06:00 Resp 18 04/11/25 06:00 BP 118/82 04/11/25 06:00 Pulse Ox 99 04/11/25 06:00 O2 Del Method Room Air 04/11/25 06:00 Physical Exam 2 Const: COMMON NORMALS: no acute distress and average body habitus Chest: COMMONS NORMALS: normal inspection of the chest Resp: COMMON NORMALS: normal respiratory effort and No use of accessory muscles GI: COMMON NORMALS: Soft to palpation, non-tender and no masses PALPATION: Yes Soft to palpation Data 04/06/25 21:25 04/06/25 21:25 A&P Assessment and plan 1. Gastrointestinal foreign body: -- The patient stated that she passed the battery in her bowel movement this morning. -- To be prudent I have ordered a follow-up KUB this morning. -- Per my interpretation, the KUB demonstrated no radiopaque foreign bodies. -- Per radiology: IMPRESSION: No radiopaque foreign bodies are seen currently. -- Surgery will sign off for now, but will be readily available if any other questions, problems, or concerns arise. The patient remains hemodynamically normal and afebrile. Abdominal exam is benign, lower than chronic abdominal pain associated with her multiple surgeries. If the patient develops an acute abdomen or abnormal imaging findings, reconsult general surgery. -- Continue chopped consistency carbohydrate consistent diet, patient is edentulous. PDMP PDMP Reviewed: Not Reviewed Attestations 2 Medical Necessity Statement*: Surgery will sign off today, no current need for surgical intervention. Coding Level of Care Code Acute Code for [facility] Diagnoses Gastrointestinal foreign body T18.9XXA
--- NOTE | 2025-04-11 10:22 | XRR_ITS ---
PROCEDURE INFORMATION: Exam: XR Abdomen Exam date and time: 04/11/2025 12:19 PM Age: 29 years old Clinical indication: Other: Fb; Additional info: Swallow battery TECHNIQUE: Imaging protocol: Radiologic exam of the abdomen. Views: Frontal supine view of the abdomen. 1 View. COMPARISON: CR XR KUB portable [id number] 04/10/2025 7:41 AM FINDINGS: Gastrointestinal tract: Normal. No bowel dilation. Bones/joints: Unremarkable. Soft tissues: The prior left lower quadrant cylindrical foreign bodies in the longer seen. No other nonsurgical foreign bodies are identified. Surgical clips are seen again in the right upper quadrant. XR/XR KUB portable [id number] IMPRESSION: No radiopaque foreign bodies are seen currently.
--- NOTE | 2025-04-11 12:53 | PC.NURSE ---
Pt. obsessed over her stuff that was left at [facility]. Signee and other staff members have repeatedly informed pt. that her hospice social worker would help with this and SS will not be back in until Sunday. Pt. will not take this information and keeps repeating herself having staff have to repeat the same answer or response as before.
[2025-04-11 14:00] VITALS: BP 113/75; PULSE 95; RESP 16; TEMP 37.1; O2SAT 99
--- NOTE | 2025-04-11 14:31 | P.NPUPN_ITS ---
Subjective NPU 2 Subjective: 29-year-old female with a history of ext ended stay in inpatient facilities with a history of borderline personality disorder, antisocial personality disorder, anxiety disorder and impulse control disorder. The patient had reported some continued pain issues. She had continued to require frequent observation but did not engage in any significant acts of self injury. She had minimized having thoughts of hurting herself or others. She continued to complain of having back pain and leg pain. She had reported that she was triggered by another peer when he made negative comments to other women here as he stated that it triggered her flashbacks and nightmares regarding her past trauma. The patient had reported no abdominal discomfort. Mental Status Exam 2 MSE Comments: This is an obese white female in hospital scrubs with limited grooming but adequate eye contact. No abnormal movements except for psychomotor retardation. She was cooperative with exam in mild distress. Speech was slightly decreased in rate and volume and childlike with speech impediment. Mood described as okay. Her affect was subdued. Thought process was linear. Thought content: Patient denied suicidal or homicidal ideation, there were no delusions reported or noted, she she denied current auditory or visual hallucinations. Attention and concentration appeared intact and memory was somewhat reliable but none were formally tested. She is alert and oriented x 3. Insight and judgment appeared impaired and impulse control is impaired. Intellectual ability was commensurate with mild cognitive impairment. Vitals/I&O/Wt Last Vital Signs Temp 97.7 F 04/11/25 06:00 Pulse 93 04/11/25 06:00 Resp 18 04/11/25 06:00 BP 118/82 04/11/25 06:00 Pulse Ox 99 04/11/25 06:00 O2 Del Method Room Air 04/11/25 06:00 Data NPU 04/06/25 21:25 04/06/25 21:25 A&P Assessment and plan 1. Impulse control disorder, unspecified: 2. Self mutilating behavior: 3. Suicidal ideation: 4. Borderline personality disorder: 5. Pica: 6. PTSD (post-traumatic stress disorder): 7. Depression: 8. Borderline intellectual functioning: Plan: This is a 29-year-old white female with a long history of mental health issues including diagnoses of PTSD, borderline personality disorder and bipolar disorder with reports of frequent hospitalizations recently but none here since 2015. She presents with likely intellectual disability, poor impulse control, reports that she has uncontrollable and self-injurious behavior. 1. Continue valium 10mg at night, consider prazosin for ptsd related nightmares, continue buspar 20mg tid, continue topamax for migraine at 50mg bid. Invega 12mg daily, reduce Haldol to 5mg in AM, 10mg at night. continue gabapentin 400mg qid. Add tamsulosin as previously prescribed at .4mg daily 2. Encourage individual, group and milieu therapy. 3. Continue 1-1 today. 4. Obtain collateral information. 5. Monitor against the backdrop of the 96-hour hold. PDMP PDMP Reviewed: Not Reviewed Involuntary Hold Information 2 Hold Status: Legal Status: 96 Hour Hold Date/Time Hold Expires: 04/23/2025 Attestations NPU 2 Medical Necessity Statement*: Inpatient hospitalization is medically necessary and the clinically appropriate intervention at this time. We will monitor/initiate medications and make changes as indicated. Likely length of stay 3-4 days. Coding Level of Care Code Acute Code for [facility] Diagnoses Impulse control disorder, unspecified F63.9 Self mutilating behavior Z72.89 Suicidal ideation R45.851 Borderline personality disorder F60.3 Pica F50.89 PTSD (post-traumatic stress disorder) F43.10 Depression F32.A Borderline intellectual functioning R41.83
--- NOTE | 2025-04-11 14:57 | PC.NURSE ---
[facility] called wanting to know what was needing to be faxed because her record was over 2000 pages. Pt. stated she was needed the date of DC and her MAR. [facility] said they would fax the information on Sunday.
--- NOTE | 2025-04-11 17:09 | PC.NURSE ---
Pt. took a nap today usually pt. does not nap.
--- NOTE | 2025-04-11 18:29 | P.PN_ITS ---
Subjective 2 Subjective: X-ray shows the battery is passed we will sign off at this time Vitals/I&O/Wt Last Vital Signs Temp 98.7 F 04/11/25 14:00 Pulse 95 04/11/25 14:00 Resp 16 04/11/25 14:00 BP 113/75 04/11/25 14:00 Pulse Ox 99 04/11/25 14:00 O2 Del Method Room Air 04/11/25 06:00 Physical Exam 2 Narrative: General Well-developed well-nourished obese female in no acute cardiopulmonary stress CV regular rate and rhythm Lungs clear to auscultation bilaterally Abdomen diminished but present bowel tones soft nontender no rebound Data 04/06/25 21:25 04/06/25 21:25 A&P Assessment and plan 1. Gastrointestinal foreign body: Battery passed. will sign off 2. Borderline intellectual functioning: Patient is cooperative but does not give good reasoning for why she is swallowing foreign body objects. 3. Borderline personality disorder: As above 4. Obesity (BMI 30.0-34.9): Start 1500-calorie ADA diet no sugars or sweetened desserts. Patient agreeable to fruit for snacks. Will request that her food be chopped. Continue on weight loss diet 5. Prediabetes: A1c actually 5. She states that she had diabetes for 3 years when she was heavier 6. Foot pain, left: Examination demonstrates no acute abnormality. She has flatfeet and walks a lot. Recommend arch support with lace up shoes however she is restricted from that due to history of recurrent dangerous foreign body ingestions and impulsive behavior PDMP PDMP Reviewed: Not Reviewed Coding Level of Care Code Acute Code for Chg Fwd Diagnoses Gastrointestinal foreign body T18.9XXA Borderline intellectual functioning R41.83 Borderline personality disorder F60.3 Obesity (BMI 30.0-34.9) E66.811 Prediabetes R73.03 Foot pain, left M79.672
[2025-04-11 20:05] VITALS: BP 127/75; PULSE 89; RESP 18; TEMP 36.4; O2SAT 99
[2025-04-12 06:00] VITALS: BP 120/83; PULSE 103; RESP 18; TEMP 36.8; O2SAT 100
--- NOTE | 2025-04-12 08:28 | NUR.SHIFT ---
Pt states that she slept poor last night and then was up at 0300. She denies anxiety or depression. No reports of SI/HI or hallucinations. She rates her back pain and bilat feet pain a 8/10. She states that she already used tylenol for this but it didn't seem to help. She is very somatic this morning again. She is currently fixated on getting a shot for her migraines when she leaves here. She states that she would also like to have her Topamax increased to help with her migraines. I informed pt that Dr. Banegas doesn't specialize in migraines and he likely wasn't going to entertain that. She would need to see a specialist when she was d/c. She verbalized understanding, but cont to come back to the topic.
[2025-04-12] MEDS: paliperidone ER 6 mg Tablet 12 MG PO (09:23)
[2025-04-12] MEDS: polyethylene glycol 3350 Pkt 17 gm PO (09:25)
--- NOTE | 2025-04-12 13:08 | P.NPUPN_ITS ---
Subjective NPU 2 Subjective: 29-year-old female with a history of ext ended stay in inpatient facilities with a history of borderline personality disorder, antisocial personality disorder, anxiety disorder and impulse control disorder. The patient continued to ask when she would be let off of one-to-one observation permanently. She had continued to have episodes of tantruming but did not require any as needed medications. She had continued to report having headaches and requested something to immediately alleviate her migraine headaches. She had reported some improvement in regards to her back pain with the Celebrex but continued to report pain in her legs. She had also continued to report having triggers for flashbacks based upon the behavior of some male peers on the unit. She had been more isolative on the milieu but appeared to be engaged in some activities with her peers. She reported adequate sleep last night. Mental Status Exam 2 MSE Comments: This is an obese white female in hospital scrubs with limited grooming but adequate eye contact. No abnormal movements except for psychomotor retardation. She was cooperative with exam in mild distress. Speech was normal in rate and volume and childlike with speech impediment. Mood described as allright. Her affect was flat. Thought process was linear. Thought content: Patient denied suicidal or homicidal ideation, there were no delusions reported or noted, she she denied current auditory or visual hallucinations. Attention and concentration appeared intact and memory was somewhat reliable but none were formally tested. She is alert and oriented x 3. Insight and judgment appeared impaired and impulse control is impaired. Intellectual ability was commensurate with mild cognitive impairment. Multiple somatic complaints endorsed including headaches, foot pain, back pain. Vitals/I&O/Wt Last Vital Signs Temp 98.3 F 04/12/25 06:00 Pulse 103 H 04/12/25 06:00 Resp 18 04/12/25 06:00 BP 120/83 04/12/25 06:00 Pulse Ox 100 04/12/25 06:00 O2 Del Method Room Air 04/12/25 06:00 Weight last 48 hrs Weight 98.339 kg Data NPU 04/06/25 21:25 04/06/25 21:25 A&P Assessment and plan 1. Impulse control disorder, unspecified: 2. Self mutilating behavior: 3. Suicidal ideation: 4. Borderline personality disorder: 5. Pica: 6. PTSD (post-traumatic stress disorder): 7. Depression: 8. Borderline intellectual functioning: Plan: This is a 29-year-old white female with a long history of mental health issues including diagnoses of PTSD, borderline personality disorder and bipolar disorder with reports of frequent hospitalizations recently but none here since 2016. She presents with likely intellectual disability, poor impulse control, reports that she has uncontrollable and self-injurious behavior. 1. Continue valium 10mg at night, consider prazosin for ptsd related nightmares, continue buspar 20mg tid, continue topamax for migraine at 50mg bid. Invega 12mg daily, reduce Haldol to 5mg in AM, 5mg at night. continue gabapentin 400mg qid. Tamsulosin.4mg daily. 2. Encourage individual, group and milieu therapy. 3. Continue 1-1 today. 4. Obtain collateral information. 5. Monitor against the backdrop of the 96-hour hold. PDMP PDMP Reviewed: Not Reviewed Involuntary Hold Information 2 Hold Status: Legal Status: 96 Hour Hold Date/Time Hold Expires: 04/23/2025 Attestations NPU 2 Medical Necessity Statement*: Inpatient hospitalization is medically necessary and the clinically appropriate intervention at this time. We will monitor/initiate medications and make changes as indicated. The patient's likely length of stay 3-4 days. Coding Level of Care Code Acute Code for g Fwd Diagnoses Impulse control disorder, unspecified F63.9 Self mutilating behavior Z72.89 Suicidal ideation R45.851 Borderline personality disorder F60.3 Pica F50.89 PTSD (post-traumatic stress disorder) F43.10 Depression F32.A Borderline intellectual functioning R41.83
[2025-04-12 14:00] VITALS: BP 115/71; PULSE 88; RESP 16; O2SAT 99
[2025-04-12 20:47] VITALS: BP 118/82; PULSE 93; RESP 16; TEMP 37; O2SAT 97
[2025-04-13 06:45] VITALS: BP 116/83; PULSE 89; RESP 16; TEMP 36.7; O2SAT 98
[2025-04-13] MEDS: paliperidone ER 6 mg Tablet 12 MG PO (08:10)
[2025-04-13] MEDS: polyethylene glycol 3350 Pkt 17 gm PO (08:16)
[2025-04-13] MEDS: ketoconazole Shampoo 120 mL Btl 1 APPLIC TOPICAL (08:18)
--- NOTE | 2025-04-13 13:35 | W.PM.NPUPNS ---
Subjective NPU Subjective: 29-year-old female with a history of extended stay in inpatient facilities with a history of borderline personality disorder, antisocial personality disorder, anxiety disorder and impulse control disorder. Patient was disappointed to hear that there was no availability for [place] at [place] [facility] She was also unable to find a placement in [place] but was considering looking into [place] at this time. She continued to engage in significant attention seeking behaviors with complaints of a myriad of problems including stomach pain, foot pain, and headaches. She had no episodes of aggression yet. She had reported adequate sleep. She continued to endorse having flashbacks and reported that she at times felt triggered by certain males on the unit that stated inappropriate things to her. She had been less isolative on the milieu. Mental Status Exam MSE Comments: This is an obese white female in hospital scrubs with limited grooming but adequate eye contact. No abnormal movements except for psychomotor retardation. She was cooperative with exam in mild distress. Speech was normal in rate and volume and childlike with speech impediment. Mood described as okay. Her affect was flat. Thought process was linear. Thought content: Patient denied suicidal or homicidal ideation. There were no delusions reported or noted, she she denied current auditory or visual hallucinations. Attention and concentration appeared intact and memory was somewhat reliable but none were formally tested. She is alert and oriented x 3. Insight and judgment appeared impaired and impulse control is impaired. Intellectual ability was commensurate with mild cognitive impairment. Multiple somatic complaints endorsed including headaches, foot pain, back pain. Vitals/I&O/Wt Last Vital Signs Temp 98.0 F 04/13/25 06:45 Pulse 89 04/13/25 06:45 Resp 16 04/13/25 06:45 BP 116/83 04/13/25 06:45 Pulse Ox 98 04/13/25 06:45 O2 Del Method Room Air 04/13/25 06:45 Weight last 48 hrs Weight 98.339 kg Data NPU 04/06/25 21:25 04/06/25 21:25 A&P Assessment and plan 1. Impulse control disorder, unspecified: 2. Self mutilating behavior: 3. Suicidal ideation: 4. Borderline personality disorder: 5. Pica: 6. PTSD (post-traumatic stress disorder): 7. Depression: 8. Borderline intellectual functioning: Plan: This is a 29-year-old white female with a long history of mental health issues including diagnoses of PTSD, borderline personality disorder and bipolar disorder with reports of frequent hospitalizations recently but none here since 2016. She presents with likely intellectual disability, poor impulse control, reports that she has uncontrollable and self-injurious behavior. 1. Continue valium 10mg at night, consider prazosin for ptsd related nightmares, continue buspar 20mg tid, continue topamax for migraine at 50mg bid. Invega 12mg daily, continue Haldol to 5mg in AM, 5mg at night. continue gabapentin 400mg qid. Tamsulosin.4mg daily. 2. Encourage individual, group and milieu therapy. 3. Continue 1-1 today. 4. Obtain collateral information. 5. Monitor against the backdrop of the 96-hour hold. PDMP PDMP Reviewed: Not Reviewed Involuntary Hold Information Hold Status: Legal Status: 96 Hour Hold Date/Time Hold Expires: 04/23/2025 Attestations NPU Medical Necessity Statement*: Inpatient hospitalization is medically necessary and the clinically appropriate intervention at this time. We will monitor/initiate medications and make changes as indicated. The patient's likely length of stay 3-4 days. Coding Level of Care Code Acute Code for Chg Fwd Diagnoses Impulse control disorder, unspecified F63.9 Self mutilating behavior Z72.89 Suicidal ideation R45.851 Borderline personality disorder F60.3 Pica F50.89 PTSD (post-traumatic stress disorder) F43.10 Depression F32.A Borderline intellectual functioning R41.83
[2025-04-13 14:00] VITALS: RESP 16
[2025-04-13 19:15] VITALS: RESP 16
--- NOTE | 2025-04-13 19:15 | PC.NURSE ---
pt refused vitals
[2025-04-14 06:00] VITALS: BP 106/67; PULSE 87; RESP 16; TEMP 36.6; O2SAT 99
[2025-04-14] MEDS: ketoconazole Shampoo 120 mL Btl 1 APPLIC TOPICAL (07:38)
[2025-04-14] MEDS: polyethylene glycol 3350 Pkt 17 gm PO (08:31)
[2025-04-14] MEDS: paliperidone ER 6 mg Tablet 12 MG PO (08:31)
[2025-04-14 14:00] VITALS: RESP 16
--- NOTE | 2025-04-14 14:58 | P.NPUPN_ITS ---
Subjective NPU 2 Subjective: 29-year-old female with a history of ext ended stay in inpatient facilities with a history of borderline personality disorder, antisocial personality disorder, anxiety disorder and impulse control disorder. The patient had previously endorsed having problems with swallowing and was placed on diet that broke up her food. She had expressed being upset after her food was broken up for her today. She had continued to report being frustrated being here as she had made numerous attempts to find a [facility] where she would be welcome to go to at this time. She had no explosive outburst. She had continued to complain of having headaches and requested an increase in Topamax. Patient had reported that she was being triggered by allege it comments made by other males on the unit stating that it made her have more flashbacks and triggered her PTSD . She had been without one-to-one safely with no episodes of pica appreciated. She continued to engage in attention seeking behaviors on the unit. Mental Status Exam 2 MSE Comments: This is an obese white female in hospital scrubs with limited grooming but adequate eye contact. No abnormal movements except for psychomotor retardation. She was cooperative with exam in mild distress. Speech was normal in rate and volume and childlike with speech impediment. Mood described as okay. Her affect was restricted today. Thought process was linear. Thought content: Patient denied suicidal or homicidal ideation. There were no delusions reported or noted, she she denied current auditory or visual hallucinations. Attention and concentration appeared intact and memory was somewhat reliable but none were formally tested. She is alert and oriented x 3. Insight and judgment appeared impaired and impulse control is limited. Intellectual ability was commensurate with mild cognitive impairment. Multiple somatic complaints endorsed including headaches, foot pain, back pain. Vitals/I&O/Wt Last Vital Signs Temp 97.9 F 04/14/25 06:00 Pulse 87 04/14/25 06:00 Resp 16 04/14/25 06:00 BP 106/67 04/14/25 06:00 Pulse Ox 99 04/14/25 06:00 O2 Del Method Room Air 04/13/25 06:45 Data NPU 04/06/25 21:25 04/06/25 21:25 A&P Assessment and plan 1. Impulse control disorder, unspecified: 2. Self mutilating behavior: 3. Suicidal ideation: 4. Borderline personality disorder: 5. Pica: 6. PTSD (post-traumatic stress disorder): 7. Depression: 8. Borderline intellectual functioning: Plan: This is a 29-year-old white female with a long history of mental health issues including diagnoses of PTSD, borderline personality disorder and bipolar disorder with reports of frequent hospitalizations recently but none here since 2016. She presents with likely intellectual disability, poor impulse control, reports that she has uncontrollable and self-injurious behavior. 1. Continue valium 10mg at night, consider prazosin for ptsd related nightmares, continue buspar 20mg tid, continue topamax for migraine at 50mg bid. Invega 12mg daily, continue Haldol to 5mg in AM, 5mg at night. continue gabapentin 400mg qid. Tamsulosin.4mg daily. 2. Encourage individual, group and milieu therapy. 3. Continue 1-1 today. 4. Obtain collateral information. 5. Monitor against the backdrop of the 96-hour hold. PDMP PDMP Reviewed: Not Reviewed Involuntary Hold Information 2 Hold Status: Legal Status: 96 Hour Hold Date/Time Hold Expires: 04/23/2025 Attestations NPU 2 Medical Necessity Statement*: Inpatient hospitalization is medically necessary and the clinically appropriate intervention at this time. We will monitor/initiate medications and make changes as indicated. The patient's likely length of stay 3-4 days. Coding Level of Care Code Acute Code for Chg Fwd Diagnoses Impulse control disorder, unspecified F63.9 Self mutilating behavior Z72.89 Suicidal ideation R45.851 Borderline personality disorder F60.3 Pica F50.89 PTSD (post-traumatic stress disorder) F43.10 Depression F32.A Borderline intellectual functioning R41.83
--- NOTE | 2025-04-14 19:44 | PC.NURSE ---
vitals not done RN stated not appropriate to attempt at this time.
--- NOTE | 2025-04-14 23:28 | PC.NURSE ---
pt bed change pt had an incontinence of bowel. bedding changed. pt showered at this time. pt used her medicated shampoo, however i was unable to scan at this time d/t it being given yesterday AM shift.
[2025-04-15 05:52] VITALS: BP 92/58; PULSE 120; RESP 18; TEMP 36.9; O2SAT 93
[2025-04-15 06:22] VITALS: BP 105/67; PULSE 115; RESP 18; O2SAT 97
[2025-04-15] MEDS: water for injection-sterile 10 ML (07:41)
--- NOTE | 2025-04-15 07:42 | PC.NURSE ---
This am pt. was agitated making demands wanting the Dr. called by the previous shift. Pt. was very upset when the nurses would not call the dr. in the early hrs of the am. Geodon was pulled d/t pt. slamming doors. Security was present and pt. talked down at that time the Geodon inj was not given. Pt. was given a PO Zofran d/t complaints of vomiting. Pt. ate breakfast and then asked for the things the previous shift had taken away. This signee denied request d/t several times pt. had eaten things that was not editable. This made pt. made she went to her the shower in her room and sat down began screaming and hitting the poon, security was called, pt. was given the Geodon inj, and pt is still yelling and hitting things. Security is present with pt. currently.
[2025-04-15] MEDS: paliperidone ER 6 mg Tablet 12 MG PO (07:54)
[2025-04-15] MEDS: polyethylene glycol 3350 Pkt 17 gm PO (07:59)
--- NOTE | 2025-04-15 07:59 | PC.NURSE ---
Security reported that while he was talking with pt. in her room pt. ripped off her arm bracelets and flushed them in the toilet.
--- NOTE | 2025-04-15 11:35 | P.NPUPN_ITS ---
Subjective NPU 2 Subjective: 29-year-old female with a history of ext ended stay in inpatient facilities with a history of borderline personality disorder, antisocial personality disorder, anxiety disorder and impulse control disorder. The patient had required some as needed medication last night. She had continued to report having problems with her stomach hurting but had been apparently witnessed as to placing her finger down her throat in an attempt to vomit. She had continued to complain of anxiety. She had reported having problems with breaking up small fruits when chewing and was placed on a diet that broke down her meat into smaller pieces. She had expressed frustration with having her meat broken down. She had made numerous complaints on the unit. She had continued to report being triggered for her PTSD yet denied any problems with hypervigilance, avoidance, or flashbacks. She continued to engage in significant attention seeking behavior. Mental Status Exam 2 MSE Comments: This is an obese white female in hospital scrubs with limited grooming but adequate eye contact. No abnormal movements except for psychomotor retardation. She was cooperative with exam in mild distress. Speech was normal in rate and volume and childlike with speech impediment. Mood described as okay. Her affect was constricted. Thought process was linear. Thought content: Patient denied suicidal or homicidal ideation. There were no delusions reported or noted, she she denied current auditory or visual hallucinations. Attention and concentration appeared intact and memory was somewhat reliable but none were formally tested. She is alert and oriented x 3. Insight was poor. Her judgment was limited and impulse control is limited. Intellectual ability was commensurate with mild cognitive impairment. Multiple somatic complaints endorsed including headaches, foot pain, back pain. Vitals/I&O/Wt Last Vital Signs Temp 98.5 F 04/15/25 05:52 Pulse 115 H 04/15/25 06:22 Resp 18 04/15/25 06:22 BP 105/67 04/15/25 06:22 Pulse Ox 97 04/15/25 06:22 O2 Del Method Room Air 04/15/25 05:52 04/14/25 04/15/25 04/15/25 22:59 06:59 14:59 Intake Total Balance Data NPU 04/06/25 21:25 04/06/25 21:25 A&P Assessment and plan 1. Impulse control disorder, unspecified: 2. Self mutilating behavior: 3. Suicidal ideation: 4. Borderline personality disorder: 5. Pica: 6. PTSD (post-traumatic stress disorder): 7. Depression: 8. Borderline intellectual functioning: Plan: This is a 29-year-old white female with a long history of mental health issues including diagnoses of PTSD, borderline personality disorder and bipolar disorder with reports of frequent hospitalizations recently but none here since 2016. She presents with likely intellectual disability, poor impulse control, reports that she has uncontrollable and self-injurious behavior. 1. Continue valium 10mg at night, 2.5mg in AM. Continue buspar 20mg tid, continue topamax for migraine at 50mg bid. Invega 12mg daily, continue Haldol to 5mg in AM, 5mg at night. continue gabapentin 400mg qid. Tamsulosin.4mg daily. 2. Encourage individual, group and milieu therapy. 3. Continue 1-1 today. 4. Obtain collateral information. 5. Patient motivated to go to assisted if available. PDMP PDMP Reviewed: Last Reviewed 04/15/25 12:34 EDT by Abdon Banegas MD Involuntary Hold Information 2 Hold Status: Legal Status: 96 Hour Hold Date/Time Hold Expires: 04/23/2025 Attestations NPU 2 Medical Necessity Statement*: Inpatient hospitalization is medically necessary and the clinically appropriate intervention at this time. We will monitor/initiate medications and make changes as indicated. The patient's likely length of stay 1-2 days. Coding Level of Care Code Acute Code for Chg Fwd Diagnoses Impulse control disorder, unspecified F63.9 Self mutilating behavior Z72.89 Suicidal ideation R45.851 Borderline personality disorder F60.3 Pica F50.89 PTSD (post-traumatic stress disorder) F43.10 Depression F32.A Borderline intellectual functioning R41.83
[2025-04-15 14:00] VITALS: BP 107/78; PULSE 103; RESP 16; TEMP 36.9; O2SAT 96
[2025-04-15 19:13] VITALS: RESP 18
--- NOTE | 2025-04-15 19:18 | PC.NURSE ---
Patient refuse vitals
[2025-04-16 06:00] VITALS: BP 108/74; PULSE 96; RESP 18; TEMP 36.4; O2SAT 99
[2025-04-16 07:00] VITALS: BP 108/74; PULSE 96; RESP 18; TEMP 36.4; O2SAT 99
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
== END 2025-04-16 07:32 | disposition home or self-care (01) | DRG 881 ==
LOC: ER 17:57 → ER IP 20:58 → NP 03-26 09:05
PROVIDERS: Internal Medicine; Admitting Provider Psychiatry & Neurology Psychiatry; Emergency Provider Emergency Medicine; PCP Family Medicine; Visit Provider Psychiatry & Neurology Psychiatry
DX: F32.A Depression, unspecified (principal); R45.851 Suicidal ideations; Z59.01 Sheltered homelessness; F43.10 Post-traumatic stress disorder, unspecified; F60.3 Borderline personality disorder; R45.850 Homicidal ideations; R41.83 Borderline intellectual functioning; Z68.35 Body mass index [BMI] 35.0-35.9, adult; E66.9 Obesity, unspecified; F41.9 Anxiety disorder, unspecified; Z91.51 Personal history of suicidal behavior; G43.909 Migraine, unspecified, not intractable, without status migrainosus; T18.2XXA Foreign body in stomach, initial encounter; W44.A9XA Other batteries entering into or through a natural orifice, initial encounter; R73.03 Prediabetes; F60.2 Antisocial personality disorder; F50.83 Pica in adults; F63.89 Other impulse disorders; K59.00 Constipation, unspecified; Z62.810 Personal history of physical and sexual abuse in childhood; Z78.1 Physical restraint status; Y92.239 Unspecified place in hospital as the place of occurrence of the external cause; M21.42 Flat foot [pes planus] (acquired), left foot; M21.41 Flat foot [pes planus] (acquired), right foot
CPT/HCPCS: 36415; 51798; 73130; 74018; 74177; 80053; 80306; 80307; 81001; 81025; 83036; 83605; 84443; 85025; 85651; 86141; 93005; 96372; 97150; 97165; 99285; J1200; J1630; J2060; J3486; J9999; Q0162; Q0163